=== PATIENT | female | born 1940 | race Caucasian/White ===

== ENCOUNTER 2018-08-04 13:00 | Emergency (ER) | payer MEDICARE, OTHER ==
[~2018-08-04] VITALS: Ht 167.6 cm; Wt 90.0 kg
[~2018-08-04 13:00] MED LIST: AMLO-15; CALC500T12; CYCL5TAB PO; FURO40TA4 PO; PANT40TA4 PO; VICES
[2018-08-04 13:16] VITALS: Ht 167.6 cm; Wt 90.0 kg
[2018-08-04] MEDS ORDERED: GABA-526 PO (13:53)
[2018-08-04] MEDS ORDERED: TRAM50TA2 PO (13:53)
[2018-08-04] MEDS ORDERED: AMLO-218 PO (13:53)
[2018-08-04] MEDS ORDERED: OMEP40CA6 PO (13:53)
[2018-08-04] MEDS ORDERED: KETOROLAC 30 MG INJ IM STA (13:55)
[2018-08-04] MEDS ORDERED: NAPR-985 PO (13:56)
[2018-08-04 18:20] VITALS: BP 121/82; PULSE 73; RESP 18
--- NOTE | 2018-08-06 00:31 | ERD ---
ER Documentation Chief Complaint Chief Complaint BIB RA FOR EVAL OF BILAT KNEE PAIN. NO RECENT INJURY. HX OF ARTHRITIS HPI 78-year-old woman with a long history of chronic knee pain and osteoarthritis presents with knee pain. She denies redness or swelling, no recent falls, no complaints of chest pain or shortness of breath. Patient usually uses a walker but sometimes a wheelchair to help ambulate. His knee pain is nonexertional nonradiating. ROS All systems reviewed and are negative except as per history of present illness. Medications Home Meds Active Scripts Naproxen* (Naprosyn*) 500 Mg Tablet, 500 MG PO BID PRN for PAIN AND/OR INFL AMMATION, #30 TAB Prov:SHAE CAPELLAN MD 08/04/18 Reported Medications Tramadol HCl (Tramadol HCl) 50 Mg Tablet, 50 MG PO Q4H WHILE AWAKE PRN for PAIN LEVEL 6-10, #120 TAB 08/04/18 Amlodipine Besylate* (Norvasc*) 10 Mg Tablet, 10 MG PO DAILY, TAB 08/04/18 Omeprazole* (Omeprazole*) 40 Mg Capsule.dr, 40 MG PO DAILY, #30 CAP 08/04/18 Gabapentin* (Gabapentin*) 600 Mg Tablet, 600 MG PO TID, #90 TAB 08/04/18 Discontinued Reported Medications Furosemide* (Furosemide*) 40 Mg Tablet, PO DAILY 04/02/11 Amlodipine-Benazepril (Amlodipine-Benazepril) 1 Cap Capsule, DAILY 04/02/11 Cyclobenzaprine Hcl (Flexeril) 5 Mg Tablet, PO DAILY 04/02/11 Calcium Carbonate* (Oysco-500*) 1 Tab Tablet, DAILY 04/02/11 Pantoprazole* (Pantoprazole*) 40 Mg Tablet.dr, PO DAILY 04/02/11 Acetaminophen/Hydrocodone (Vicodin Es) 1 Tab Tab 04/02/11 Allergies Allergies: Coded Allergies: No Known Drug Allergy (Verified Allergy, Unknown, 08/04/18) PMhx/Soc Gastritis, chronic pain syndrome, osteoarthritis History of Surgery: Yes (bilat KNEE REPLACEMENT, R SHOULDER, right foot 1st toe) Anesthesia Reaction: No Hx Neurological Disorder: No Hx Respiratory Disorders: No Hx Cardiac Disorders: Yes (HTN, hyperlipidemia) Hx Psychiatric Problems: No Hx Miscellaneous Medical Probl: No (ARTHRITIS, OSTEOPOROSIS) Hx Alcohol Use: No Hx Substance Use: No Hx Tobacco Use: No Smoking Status: Never smoker FmHx Family History: No diabetes Physical Exam Vitals Vital Signs Date Temp Pulse Resp B/P (MAP) Pulse Ox O2 O2 Flow FiO2 Time Delivery Rate 08/04/18 98.0 73 18 121/82 100 Room Air 18:20 (95) 08/04/18 71 20 119/84 100 Room Air 17:11 (96) 08/04/18 75 17 124/94 100 Room Air 15:31 (104) 08/04/18 75 20 131/71 100 Room Air 15:15 (91) 08/04/18 97.9 88 19 152/84 100 13:16 (106) Physical Exam Head: Atraumatic Eyes: Normal Conjunctiva ENT: Normal External Ears, Nose and Mouth. Neck: Full range of motion. No meningismus. Resp: Clear to auscultation bilaterally Cardio: Regular rate and rhythm, no murmurs Abd: Soft, non tender, non distended. Normal bowel sounds Skin: No petechiae or rashes Back: No midline or flank tenderness Ext: No cyanosis, or edema. Calves are bilaterally symmetrical, oste oarthritic changes to both knees, crepitus with flexion and extension, no soft tissue swelling to the knees Neur: Awake and alert x3, no focal deficits or facial asymmetry Psych: Normal Mood and Affect Results 24 hrs Current Medications Medications Dose Sig/Rose Marie Start Time Status Last (Trade) Ordered Route PRN Stop Time Admin Dose Reason Admin Ketorolac 30 mg ONCE STAT 08/04/18 DC 08/04/18 Tromethamine IM 13:55 14:26 (Toradol) 08/04/18 13:56 Procedures/MDM I administered Toradol 30 mg IM x1. Exam is normal, vital signs are normal, patient pain improved. Patient feels much better at this time, and vital signs are normal, symptoms have improved. I did give strict instructions to return to the ED if symptoms continue or worsen, patient will otherwise follow-up with primary care physician. Patient understood instructions and agreed to plan. Disclaimer: Inadvertent spelling and grammatical errors are likely due to EHR/dictation software use and do not reflect on the overall quality of patient care. Also, please note that the electronic time recorded on this note does not necessarily reflect the actual time of the patient encounter. Departure Diagnosis: Primary Impression: Knee pain Chronicity: acute Laterality: bilateral Qualified Codes: M25.561 - Pain in right knee; M25.562 - Pain in left knee Additional Impression: Osteoarthritis Osteoarthritis location: knee Osteoarthritis type: primary Laterality: bilateral Qualified Codes: M17.0 - Bilateral primary osteoarthritis of knee Condition: Good Patient Instructions: Chronic Pain, Osteoarthritis SHAE CAPELLAN MD Aug 06, 2018 00:31
== END 2018-08-04 18:44 | disposition home or self-care (01) ==
LOC: E/R 13:00
DX: M17.0 Bilateral primary osteoarthritis of knee (principal); I10 Essential (primary) hypertension; Z96.653 Presence of artificial knee joint, bilateral
CPT/HCPCS: 96372; 99284; J1885

== ENCOUNTER 2018-12-10 00:58 | Inpatient (IN) | payer MEDICARE, OTHER ==
[~2018-12-10] VITALS: Ht 157.5 cm; Wt 85.5 kg
[~2018-12-10 00:58] MED LIST changes: -AMLO-15; +AMLO-218 PO; -CALC500T12; -CYCL5TAB PO; -FURO40TA4 PO; +GABA-526 PO; +NAPR-985 PO; +OMEP40CA6 PO; -PANT40TA4 PO; +TRAM50TA2 PO; -VICES
[2018-12-10] MEDS ORDERED: IODIXANOL LOCM 100 ML BTL ONE (01:38)
[2018-12-10] MEDS ORDERED: SOD CHLORIDE 0.9% 100 ML ONE (01:38)
[2018-12-10] MEDS ORDERED: AZITHROMYCIN 500MG/NS (PMX) 250 ML IV STA (02:05)
[2018-12-10] MEDS ORDERED: CEFTRIAXONE 1 GM/50 ML (PMX) 50 ML IVPB STA (02:05)
--- NOTE | 2018-12-10 02:23 | ERD ---
ER Documentation Chief Complaint Chief Complaint BIBRA 90,from [facility],low O2 sat while on O2 via NC,s/p R hip replace HPI This is a 78-year-old female who presents for evaluation of hypoxia. Patient presents from [facility], she has been having a low O2 sat for about the last 5 hours, on room air she desats to 85%, her oxygenation improved on nasal cannula, she has a history of a right hip replacement, she has not had a fever. She denies any chest pain. There are no alleviating or aggravating factors. Symptoms have been going on since a day. ROS All systems reviewed and are negative except as per history of present illness. Medications Home Meds Active Scripts Naproxen* (Naprosyn*) 500 Mg Tablet, 500 MG PO BID PRN for PAIN AND/OR INFLAMMATION, #30 TAB Prov:SHAE CAPELLAN MD 08/04/18 Reported Medications Hydrocodone/Acetaminophen (Hydrocodone-Acetamin 10-325 mg) 1 Each Tablet, 1 TAB PO DAILY PRN for PAIN LEVEL 6-10 for 20 Days 12/10/18 Hydrochlorothiazide* (Hydrochlorothiazide*) 25 Mg Tab, 25 MG PO DAILY for 60 Days, #60 take 1 tablet by mouth once daily 12/10/18 Benazepril Hcl* (Benazepril Hcl*) 20 Mg Tablet, 20 MG PO BID for 30 Days, #60 12/10/18 Ibuprofen* (Ibuprofen*) 800 Mg Tablet, 800 MG PO Q6H PRN for PAIN LEVEL 6-10 12/10/18 Furosemide* (Furosemide*) 20 Mg Tablet, 20 MG PO DAILY 12/10/18 Tramadol HCl (Tramadol HCl) 50 Mg Tablet, 50 MG PO Q4H WHILE AWAKE PRN for PAIN LEVEL 6-10, #120 TAB 08/04/18 Amlodipine Besylate* (Norvasc*) 10 Mg Tablet, 10 MG PO DAILY, TAB 08/04/18 Omeprazole* (Omeprazole*) 40 Mg Capsule.dr, 40 MG PO DAILY, #30 CAP 08/04/18 Gabapentin* (Gabapentin*) 600 Mg Tablet, 600 MG PO TID, #90 TAB 08/04/18 Allergies Allergies: Coded Allergies: No Known Drug Allergy (Unverified Allergy, Unknown, 12/10/18) PMhx/Soc History of Surgery: Yes (bilat KNEE REPLACEMENT, R SHOULDER, right foot 1st toe,R hip replacement) Anesthesia Reaction: No Hx Neurological Disorder: No Hx Respiratory Disorders: No Hx Cardiac Disorders: Yes (HTN, hyperlipidemia) Hx Psychiatric Problems: No Hx Miscellaneous Medical Probl: No (ARTHRITIS, OSTEOPOROSIS) Hx Alcohol Use: No Hx Substance Use: No Hx Tobacco Use: No Smoking Status: Never smoker Physical Exam Vitals Vital Signs Date Temp Pulse Resp B/P (MAP) Pulse Ox O2 O2 Flow FiO2 Time Delivery Rate 12/10/18 Simple 6 01:36 Mask 12/10/18 66 25 99/57 (71) 97 Mask 01:30 12/10/18 95 10.0 01:20 12/10/18 97.8 67 28 87/57 (67) 86 01:06 Physical Exam Const: Elderly appearing female, in no acute distress Head: Atraumatic Eyes: Normal Conjunctiva ENT: Normal External Ears, Nose and Mouth. Neck: Full range of motion. No meningismus. Resp: Rales are heard bilaterally, there is no wheezes or rhonchi Cardio: Regular rate and rhythm, no murmurs Abd: Soft, non tender, abdomen is distended. Normal bowel sounds Skin: No petechiae or rashes Back: No midline or flank tenderness Ext: No cyanosis, 2+ pitting edema Neur: Awake and alert Psych: Normal Mood and Affect Result Diagram: 12/10/18 0127 12/10/18 0127 Results 24 hrs Laboratory Tests Test 12/10/18 01:07 12/10/18 01:24 12/10/18 01:27 Blood Gas Specimen Source Blood venous Arterial Blood Date Drawn 12/10/2018 1:30:42 AM Arterial Blood Gas VENOUS LINE Puncture Site Manuel Test N/A Venous Blood pH 7.454 Venous Blood pCO2 34.2 mmHG (Temp Corrected) Venous Blood pO2 49.7 mmHG (Temp Corrected) Venous Blood HCO3 23.5 mmol/L Venous Blood Oxygen 85.2 mmHG Saturation Venous Blood Base Excess 0.1 mmol/L Venous Blood Total 13.0 g/dl Hemoglobin Venous Blood Oxyhemoglobin 84.3 % Venous Blood Methemoglobin 0.1 % Carboxyhemoglobin 0.9 % Blood Gas Temperature 37.0 C Blood Gas Modality MASK - SIMPLE FiO2 61.0 % Blood Gas Notified Whom MM Blood Gas Notified Time 12/10/2018 1:42:17 AM POC Venous Lactate 1.7 mmol/L White Blood Count 13.1 10^3/ul Red Blood Count 4.02 10^6/ul Hemoglobin 11.3 g/dl Hematocrit 34.1 % Mean Corpuscular Volume 84.8 fl Mean Corpuscular Hemoglobin 28.1 pg Mean Corpuscular 33.1 g/dl Hemoglobin Concent Red Cell Distribution Width 17.1 % Platelet Count 104 10^3/UL Mean Platelet Volume 11.0 fl Immature Granulocytes % 7.200 % Neutrophils % % Lymphocytes % % Monocytes % % Eosinophils % % Basophils % % Nucleated Red Blood Cells % 0.0 /100WBC Immature Granulocytes # 0.940 10^3/ul Neutrophils # 10^3/ul Lymphocytes # 10^3/ul Monocytes # 10^3/ul Eosinophils # 10^3/ul Basophils # 10^3/ul Nucleated Red Blood Cells # 10^3/ul Prothrombin Time 27.8 Sec Prothrombin Time Ratio 2.2 INR International 2.59 Normalized Ratio Activated 44.1 Sec Partial Thromboplast Time Sodium Level 139 mmol/L Potassium Level 4.6 mmol/L Chloride Level 107 mmol/L Carbon Dioxide Level 27 mmol/L Anion Gap 5 Blood Urea Nitrogen 37 mg/dl Creatinine 0.71 mg/dl Est Glomerular Filtrat mL/min Rate mL/min Glucose Level 134 mg/dl Calcium Level 8.7 mg/dl Total Bilirubin 0.4 mg/dl Direct Bilirubin 0.00 mg/dl Indirect Bilirubin 0.4 mg/dl Aspartate Amino 19 IU/L Transf (AST/SGOT) Alanine 36 IU/L Aminotransferase (ALT/SGPT) Alkaline Phosphatase 79 IU/L Troponin I < 0.012 ng/ml Total Protein 6.0 g/dl Albumin 3.1 g/dl Globulin 2.90 g/dl Albumin/Globulin Ratio 1.06 Current Medications Medications Dose Sig/Rose Marie Start Time Status Last (Trade) Ordered Route PRN Stop Time Admin Dose Reason Admin IV Flush 10 ml STK-MED 12/10/18 DC 12/10/18 (NS 10 ml) ONCE .ROUTE 01:38 01:49 12/10/18 01:39 Sodium 100 ml @ ud STK-MED 12/10/18 DC 12/10/18 Chloride ONCE .ROUTE 01: 01:49 12/10/18 01:39 Iodixanol 100 ml STK-MED 12/10/18 DC 12/10/18 (Visipaque ONCE .ROUTE 01:38 01:49 Locm) 12/10/18 01:39 Azithromycin 250 ml @ ONCE STAT 12/10/18 250 mls/hr IV 02:05 12/10/18 03:04 Ceftriaxone 50 ml @ ONCE STAT 12/10/18 DC 12/10/18 Sodium 100 mls/hr IVPB 02:05 02:30 12/10/18 02:34 Procedures/MDM 78-year-old female presents for evaluation of shortness of breath and hypoxia. Patient had no chest pain, and her EKG showed no evidence of acute ischemia. Primary considerations were CHF, infection, and pulmonary embolism. Patient had a notable right-sided consolidation, seen on CT scan, patient was not hemodynamically unstable, and did not display evidence of massive PE. Her CTA is currently pending. She was given ceftriaxone and azithromycin empirically for possible pneumonia. She had no evidence of severe sepsis or septic shock, I did not administer IV fluids, as she had clinical signs of volume overload. She will be admitted to telemetry. EKG: Rate/Rhythm: Normal Sinus Rhythm QRS, ST, T-waves: LVH. No changes consistent w/ acute ischemia Impression: No evidence of ischemia or arrhythmia Accepting Care Team: Current data and ongoing care discussed. Primary: Teja Consulting: None Outstanding Data: none Departure Diagnosis: Primary Impression: Shortness of breath Additional Impression: Pneumonia Pneumonia type: due to unspecified organism Laterality: unspecified laterality Lung location: unspecified part of lung Qualified Codes: J18.9 - Pneumonia, unspecified organism Condition: SHAE Chaparro MD Dec 10, 2018 02:22
[2018-12-10] MEDS ORDERED: HYDR25TA6 PO (02:26)
[2018-12-10] MEDS ORDERED: IBUP-1544 PO (02:26)
[2018-12-10] MEDS ORDERED: HYDR-3609 PO (02:26)
[2018-12-10] MEDS ORDERED: BENA20TA4 PO (02:26)
[2018-12-10] MEDS ORDERED: FURO20TA3 PO (02:26)
[2018-12-10] MEDS ORDERED: ONDANSETRON 4 MG INJ IV PRN (03:00)
[2018-12-10] MEDS ORDERED: ACETAMINOPHEN 325 MG TAB PO PRN ×2 (03:00→03:30)
[2018-12-10] MEDS ORDERED: VANCOMYCIN IV PER PHARMACY XX SCH (03:30)
[2018-12-10] MEDS ORDERED: NACL 0.9% 3 ML SYG IV SCH (03:30)
[2018-12-10] MEDS ORDERED: DOCUSATE SODIUM 100 MG CAP PO PRN (03:30)
[2018-12-10] MEDS ORDERED: BISACODYL (EC) 5 MG TAB PO PRN (03:30)
[2018-12-10] MEDS ORDERED: VANCOMYCIN HCL 1.5 GM in SOD CHLORIDE 0.9% 250 ML IVPB ONE (04:00)
[2018-12-10] MEDS: ALBUMIN HUMAN 25% 100 ML IV SCH ×2 (04:29→06:38)
[2018-12-10 04:30] VITALS: Ht 157.5 cm; Wt 85.5 kg
[2018-12-10 04:33] VITALS: BP 101/61; PULSE 63; RESP 26
[2018-12-10] MEDS ORDERED: ALBUTEROL/IPRATROPIUM (NEB) 3 ML AMP HHN PRN (05:00)
[2018-12-10] MEDS ORDERED: NAPROXEN 500 MG TAB PO PRN (05:00)
--- NOTE | 2018-12-10 05:02 | HP ---
Date/Time of Note Date/Time of Note DATE: 12/10/18 TIME: 04:42 Assessment/Plan VTE Prophylaxis Pharmacological prophylaxis: heparin Lines/Catheters IV Catheter Type (from [facility]): Saline Lock Assessment/Plan Hospital Course This is a 78-year female being admitted to the telemetry floor for: #1 hypoxia: Likely multifactorial secondary to underlying healthcare associated pneumonia, possible CHF. CT of the chest did not show any signs of pulmonary embolism. There was evidence of possible bilateral pneumonia. She did report fevers yesterday however there was none recorded in the emergency department she does have leukocytosis. There is also some evidence of pulmonary congestion. I will give her albumin to see if this will help with diuresis as her blood pressures are borderline at the current time. She is currently on 6 L simple mask and saturating 89%, we will put her on a high flow/nonrebreather to help with her saturations. We will also give her a breathing treatments. #2 Healthcare associated pneumonia, bilateral: Patient presented from [facility]. Put the patient on broad-spectrum antibiotics of vancomycin and Zosyn. She did receive antibiotics in the emergency department. Will await culture results. #3 bilateral lower extremity edema: We will check a BNP, echocardiogram. She denies heart failure. #4 hypertension: I will hold amlodipine, benazepril, hydrochlorothiazide given patient's borderline blood pressures. #5 Coagulopathy: I do not see any AC meds on her med recon. Will need to monitor coags and check for underling liver disease thought LFTs are within normal values. #6 osteoporosis: Naproxen, tramadol as needed #7 DVT GI prophylaxis: Heparin subcu, home PPI Further treatment strategy will be implemented as per the clinical course Result Diagram: 12/10/18 0127 12/10/18 0127 Results 24hrs Laboratory Tests Test 12/10/18 01:07 12/10/18 01:24 12/10/18 01:27 12/10/18 03:19 Blood Gas Blood venous Specimen Source Arterial Blood 12/10/2018 1:30:4 Date Drawn 2 AM Arterial Blood VENOUS LINE Gas Puncture Site Manuel Test N/A Venous Blood pH 7.454 H Venous Blood pCO2 34.2 L (Temp Corrected) Venous Blood pO2 49.7 H (Temp Corrected) Venous Blood HCO3 23.5 Venous Blood 85.2 H Oxygen Saturation Venous Blood Base 0.1 Excess Venous Blood 13.0 Total Hemoglobin Venous Blood 84.3 Oxyhemoglobin Venous Blood 0.1 Methemoglobin Carboxyhemoglobin 0.9 Blood Gas 37.0 Temperature Blood Gas MASK - SIMPLE Modality FiO2 61.0 Blood Gas MM Notified Whom Blood Gas 12/10/2018 1:42:1 Notified Time 7 AM POC Venous 1.7 Lactate White Blood Count 13.1 H Red Blood Count 4.02 L Hemoglobin 11.3 L Hematocrit 34.1 L Mean Corpuscular 84.8 Volume Mean Corpuscular 28.1 L Hemoglobin Mean Corpuscular 33.1 Hemoglobin Concen t Red Cell 17.1 H Distribution Width Platelet Count 104 L Mean Platelet 11.0 H Volume Immature 7.200 H Granulocytes % Neutrophils % Segmented 41 Neutrophils % (Manual) Band Neutrophils 43 H % (Manual) Lymphocytes % Lymphocytes % 12 L (Manual) Monocytes % Monocytes % 3 (Manual) Eosinophils % Basophils % Myelocytes % 1 H (Manual) Nucleated Red 0.0 Blood Cells % Immature 0.940 H Granulocytes # Neutrophils # Neutrophils # 6.1 (Manual) Band Neutrophils 5.6 H # Lymphocytes 1.5 (Manual) Lymphocytes # Monocytes # Monocytes # 0.3 (Manual) Eosinophils # Basophils # Myelocytes # 0.1 H Nucleated Red Blood Cells # Platelet Estimate DECREASED Giant Platelets 2 H Polychromasia 3+ Poikilocytosis 1+ Anisocytosis 2+ Microcytosis 2+ Prothrombin Time 27.8 H Prothrombin Time 2.2 Ratio INR International 2.59 Normalized Ratio Activated 44.1 H Partial Thrombopl ast Time Sodium Level 139 Potassium Level 4.6 Chloride Level 107 Carbon Dioxide 27 Level Anion Gap 5 Blood Urea 37 H Nitrogen Creatinine 0.71 Est Glomerular Filtrat Rate mL/min Glucose Level 134 Calcium Level 8.7 Total Bilirubin 0.4 Direct Bilirubin 0.00 Indirect 0.4 Bilirubin Aspartate Amino 19 Transf (AST/SGOT) Alanine 36 Aminotransferase (ALT/SGPT) Alkaline 79 Phosphatase Troponin I < 0.012 Total Protein 6.0 L Albumin 3.1 L Globulin 2.90 Albumin/Globulin 1.06 Ratio Lactic Acid Level 1.2 HPI/ROS Admit Date/Time Admit Date/Time Dec 10, 2018 at 02:52 Hx of Present Illness Chief complaint: [facility] in [facility] hypoxia This is a 78-year-old female who presents for evaluation of hypoxia. Patient presents from [facility], she has been having a low O2 sat for about the last 5 hours, on room air she desats to 85%, her oxygenation improved on nasal cannula, she has a history of a right hip replacement, she has not had a fever. She denies any chest pain. There are no alleviating or aggravating factors. Symptoms have been going on since a day. Patient had a CTA of the chest performed in the emergency department that was negative for PE. There was evidence though of bilateral pneumonia. She is currently satting at 89% on 6 L nasal cannula. Allergies: NKDA Medications: Amlodipine 10 mg p.o. daily Benazepril 20 mg p.o. twice daily Lasix 20 mg p.o. daily Gabapentin 600 mg p.o. 3 times daily Hydrochlorothiazide 25 mg p.o. daily [place] 10-325 mg p.o. as needed Ibuprofen 800 mg p.o. every 6 hours Naproxen 500 mg p.o. twice daily PRN Tramadol 50 mg p.o. every 4 hours PRN Omeprazole 40 mg p.o. daily ROS Const: As per HPI Eyes : No pain discharge or redness or change in visual acuity ENT: No pain, sore throat, congestion, congestion, dysphagia or discharge Respiratory: As per HPI Cardiovascular: No chest pain, palpitation, PND, or edema GI : no change in appetite, abdominal pain, nausea, vomiting, diarrhea, constipation, or change in the color his stool Genitourinary: No dysuria, hematuria, flank pain , discharge or CVA tenderness Musculoskeletal: No joint pain, back pain, neck pain, restricted range of motion in neck or joints Skin: No rash, bruising or hives Neuro: No headache, dizziness, syncope, seizure, focal weakness Endocrine: No polyuria, polydipsia, temperature intolerance Psych: No hallucination, depression, anxiety or suicidal ideation PMH/Family/Social Past Medical History Hypertension, hyperlipidemia, osteoporosis Medications Current Medications Ondansetron HCl (Zofran Inj) 4 mg ER BRIDGE PRN IV NAUSEA/VOMITING; Start 12/10/18 at 03:00; Stop 12/11/18 at 02:59 Acetaminophen (Tylenol Tab) 650 mg ER BRIDGE PRN PO .MILD PAIN 1-3 OR TEMP; Start 12/10/18 at 03:00; Stop 12/11/18 at 02:59 IV Flush (NS 3 ml) 3 ml PER PROTOCOL IV ; Start 12/10/18 at 03:30 Acetaminophen (Tylenol Tab) 650 mg Q6H PRN PO .PAIN 1-3 OR TEMP; Start 12/10/18 at 03:30 Docusate Sodium (Colace) 100 mg Q12H PRN PO .CONSTIPATION; Start 12/10/18 at 03:30 Bisacodyl (Dulcolax) 5 mg DAILY PRN PO .CONSTIPATION; Start 12/10/18 at 03:30 Heparin Sodium (Porcine) (Heparin (5000 Units/1ml)) 5,000 unit Q8 SC ; Start 12/10/18 at 06:00 Albumin Human 100 ml @ 100 mls/hr Q1H IV Last administered on 12/10/18at 04:29; Admin Dose 100 MLS/HR; Start 12/10/18 at 03:30; Stop 12/10/18 at 05:29 Vancomycin HCl (Vanco Iv Per Pharmacy) VANCOMYCIN PER PHARMACY PER PROTOCOL XX ; Start 12/10/18 at 03:30 Piperacillin Sod/ Tazobactam Sod 100 ml @ 200 mls/hr Q6 IVPB ; Start 12/10/18 at 06:00 Vancomycin HCl 1.5 gm/Sodium Chloride 250 ml @ 83.333 mls/ hr ONCE ONCE IVPB ; Start 12/10/18 at 04:00; Stop 12/10/18 at 06:59 Vancomycin HCl 250 ml @ 125 mls/hr Q24H IVPB ; Start 12/11/18 at 04:00 Miscellaneous Information (*Rx Drug Level Order Reminder*) VANCOMYCIN TROUGH LEVEL 0300 ONCE XX ; Start 12/13/18 at 03:00; Stop 12/13/18 at 03:01 Coded Allergies: No Known Drug Allergy (Unverified Allergy, Unknown, 12/10/18) Past Surgical History Bilateral knee surgeries, right shoulder surgery, right hip surgery, right toe surgery Family History Significant Family History: no pertinent family hx Social History Alcohol Use: none Smoking Status: Never smoker Drug Use: none Exam/Review of Systems Vital Signs Vitals Vital Signs Date Temp Pulse Resp B/P (MAP) Pulse Ox O2 O2 Flow FiO2 Time Delivery Rate 12/10/18 97.6 63 26 101/61 92 Mask 04:33 (74) 12/10/18 5.0 03:44 Exam Exam General: Patient is a pleasant female currently sitting upright in bed in no acute distress, she is eating crackers HEENT: Atraumatic, normocephalic. The pupils are equal, round and reactive. Extraocular motor are intact Neck: Supple with full range of motion. No rigidity or meningismus Chest: Nontender Lungs: Diminished breath sounds bilaterally coarse, mild rales at the bases Heart: Normal S1-S2, Regular rhythm and rate. No murmur, S3, or S4 Abdomen: Soft , nontender, nondistended , bowel sounds are present. No guarding no rebound tenderness , No masses or organomegaly. No costovertebral temporal angle mass Extremities: Bilateral lower extremity pitting edema Neurologic: Normal mental status, speech normal, cranial nerves II through XII are intact, motor and sensory are intact, NELLY PARRISH Dec 10, 2018 04:53
[2018-12-10] MEDS: PIPER-TAZO 3.375 GM IV (PMX) 100 ML IVPB SCH ×4 (05:57→23:55)
[2018-12-10] MEDS: HEPARIN 5,000 UNIT/1 ML VIAL SC SCH ×3 (06:00→22:08)
[2018-12-10] MEDS: PANTOPRAZOLE (EC) 40 MG TAB PO SCH (06:00)
[2018-12-10 07:12] VITALS: BP 97/55; PULSE 79; RESP 20
[2018-12-10] MEDS: GABAPENTIN 300 MG CAP PO SCH ×3 (08:17→21:37)
[2018-12-10] MEDS ORDERED: NON-FORMULARY/PATIENT OWN MED (Omeprazole* 40 MG) PO SCH (09:00)
--- NOTE | 2018-12-10 10:46 | PN ---
Date/Time of Note Date/Time of Note DATE: 12/10/18 TIME: 10:43 Assessment/Plan VTE Prophylaxis Risk score (from Ns)>0 risk: 3 [place] [facility] [place] Pharmacological prophylaxis: NA/contraindicated Pharm contraindication: thrombocytopenia Lines/Catheters IV Catheter Type (from [facility]): Saline Lock Assessment/Plan Hospital Course SUBJECTIVE: Remains on high flow oxygen. OBJECTIVE: Physical Exam General: Obese, 78 year-old female lying in bed in no apparent distress. HEENT: Normocephalic, atraumatic. Eyes: Anicteric sclerae, conjunctivae clear. ENT: Nasal septum midline, oral mucosa moist. Neck: Short and obese. Respiratory: Bilaterally diminished breath sounds. Bibasilar Rales. No use of accessory muscles of respiration. On high flow oxygen. Cardiovascular: S1, S2 heard. Regular rate and rhythm. Abdomen: Soft, nontender, and nondistended. Bowel sounds positive in all 4 quadrants. Genitourinary: Deferred. Extremities: No cyanosis, no clubbing. Bilateral lower extremity 1+ edema. Peripheral pulses palpable. Neurologic: Cranial nerves II through XII grossly intact. The patient is awake, alert, and oriented. Skin: Normal skin turgor. No skin rashes. Labs & Vitals per chart ASSESSMENT & PLAN 78-year-old female with comorbidities including hypertension, osteoporosis, and obesity who was transferred from a senior care facility because of hypoxia with evidence of sepsis with leukocytosis, tachypnea, and bandemia with CT suggestive of underlying pneumonia, who was admitted to inpatient setting for further treatment and evaluation. 1. Severe sepsis with leukocytosis, tachypnea, and bandemia. Sepsis criteria: WBC 13.1, tachypnea (RR >20), bandemia (>10%) Infectious source: Respiratory source (suspect underlying HCAP). End organ damage (severe sepsis) indicated by: Hypoxia, INR >1.5 without warfarin Septic shock criteria: No Continue empiric antimicrobials. 2. Suspect healthcare associated pneumonia. Continue antimicrobials. 3. Acute respiratory failure. Hypoxic. Etiology could be multifactorial including underlying pneumonia and possibly a component of congestive heart failure. Continue supplemental oxygen. Continue inhaled bronchodilators. Pulmonology evaluation. 4. Coagulopathy. INR of 2.59 with a platelet count of 90. Etiology unclear. Will obtain a liver ultrasound to evaluate for any underlying liver cirrhosis. 5. Bilateral lower extremity edema. Etiology unclear. Obtain bilateral lower extremity venous Doppler study. 2D echocardiogram to evaluate the left ventricular ejection fraction 6. Hypertension. Antihypertensives on hold because of borderline low blood pressure. 7. Obesity. BMI7 34 kg/m. Obtain fasting lipid panel and hemoglobin A1c. Advised lifestyle modification. 8. Fluids, electrolytes, and nutrition. Low-cholesterol diet. 9. DVT prophylaxis. Chemical DVT prophylaxis contraindicated because of underlying coagulopathy. 10. Plan. Continue antimicrobial therapy. Await cultures. Await clinical improvement. Obtain pulmonology evaluation. The patient was seen in collaboration with Dr. Amezquita. Result Diagram: 12/10/18 0557 12/10/18 0557 Results 24hrs Laboratory Tests Test 12/10/18 01:07 12/10/18 01:24 12/10/18 01:27 12/10/18 03:19 Blood Gas Blood venous Specimen Source Arterial Blood 12/10/2018 1:30:4 Date Drawn 2 AM Arterial Blood VENOUS LINE Gas Puncture Site Manuel Test N/A Venous Blood pH 7.454 H Venous Blood pCO2 34.2 L (Temp Corrected) Venous Blood pO2 49.7 H (Temp Corrected) Venous Blood HCO3 23.5 Venous Blood 85.2 H Oxygen Saturation Venous Blood Base 0.1 Excess Venous Blood 13.0 Total Hemoglobin Venous Blood 84.3 Oxyhemoglobin Venous Blood 0.1 Methemoglobin Carboxyhemoglobin 0.9 Blood Gas 37.0 Temperature Blood Gas MASK - SIMPLE Modality FiO2 61.0 Blood Gas MM Notified Whom Blood Gas 12/10/2018 1:42:1 Notified Time 7 AM POC Venous 1.7 Lactate White Blood Count 13.1 H Red Blood Count 4.02 L Hemoglobin 11.3 L Hematocrit 34.1 L Mean Corpuscular 84.8 Volume Mean Corpuscular 28.1 L Hemoglobin Mean Corpuscular 33.1 Hemoglobin Concen t Red Cell 17.1 H Distribution Width Platelet Count 104 L Mean Platelet 11.0 H Volume Immature 7.200 H Granulocytes % Neutrophils % Segmented 66 Neutrophils % (Manual) Band Neutrophils 18 H % (Manual) Lymphocytes % Lymphocytes % 11 L (Manual) Monocytes % Monocytes % 3 (Manual) Eosinophils % Basophils % Metamyelocytes % 2 H (manual) Myelocytes % 1 H (Manual) Nucleated Red 0.0 Blood Cells % Immature 0.940 H Granulocytes # Neutrophils # Neutrophils # 8.9 H (Manual) Band Neutrophils 2.3 H # Lymphocytes 1.4 (Manual) Lymphocytes # Monocytes # Monocytes # 0.3 (Manual) Eosinophils # Basophils # Metamyelocytes # 0.2 H Myelocytes # 0.1 H Nucleated Red Blood Cells # Platelet Estimate DECREASED Giant Platelets 2 H Polychromasia 2+ Poikilocytosis 2+ Anisocytosis 1+ Microcytosis 1+ Ovalocytes 1+ Prothrombin Time 27.8 H Prothrombin Time 2.2 Ratio INR International 2.59 Normalized Ratio Activated 44.1 H Partial Thrombopl ast Time Sodium Level 139 Potassium Level 4.6 Chloride Level 107 Carbon Dioxide 27 Level Anion Gap 5 Blood Urea 37 H Nitrogen Creatinine 0.71 Est Glomerular Filtrat Rate mL/min Glucose Level 134 Calcium Level 8.7 Total Bilirubin 0.4 Direct Bilirubin 0.00 Indirect 0.4 Bilirubin Aspartate Amino 19 Transf (AST/SGOT) Alanine 36 Aminotransferase (ALT/SGPT) Alkaline 79 Phosphatase Troponin I < 0.012 Total Protein 6.0 L Albumin 3.1 L Globulin 2.90 Albumin/Globulin 1.06 Ratio Lactic Acid Level 1.2 Test 12/10/18 05:57 White Blood Count 11.7 H Red Blood Count 3.56 L Hemoglobin 9.8 L Hematocrit 30.0 L Mean Corpuscular 84.3 Volume Mean Corpuscular 27.5 L Hemoglobin Mean Corpuscular 32.7 Hemoglobin Concen t Red Cell 17.2 H Distribution Width Platelet Count 90 L Mean Platelet 11.0 H Volume Immature 6.100 H Granulocytes % Neutrophils % Lymphocytes % Monocytes % Eosinophils % Basophils % Nucleated Red 0.0 Blood Cells % Immature 0.710 H Granulocytes # Neutrophils # Lymphocytes # Monocytes # Eosinophils # Basophils # Nucleated Red Blood Cells # Sodium Level 140 Potassium Level 4.2 Chloride Level 107 Carbon Dioxide 24 Level Anion Gap 9 Blood Urea 31 H Nitrogen Creatinine 0.57 Est Glomerular Filtrat Rate mL/min Glucose Level 148 Lactic Acid Level 2.0 Calcium Level 8.8 Magnesium Level 2.2 Total Bilirubin 0.4 Direct Bilirubin 0.00 Indirect 0.4 Bilirubin Aspartate Amino 18 Transf (AST/SGOT) Alanine 30 Aminotransferase (ALT/SGPT) Alkaline 62 Phosphatase B-Type 198 Natriuretic Peptide Total Protein 5.7 L Albumin 3.2 L Globulin 2.50 Albumin/Globulin 1.28 Ratio Procalcitonin 6.85 H Thyroid 0.805 Stimulating Hormone (TSH) Exam/Review of Systems Exam Vitals Vital Signs Date Temp Pulse Resp B/P (MAP) Pulse Ox O2 O2 Flow FiO2 Time Delivery Rate 12/10/18 Simple 6.0 08:00 Mask 12/10/18 97.8 79 20 97/55 (69) 92 07:12 Intake and Output 12/09/18 12/09/18 12/10/18 1515:00 23:00 07:00 IntakeIntake Total 60 ml BalanceBalance 60 ml Results Results 24hrs Laboratory Tests Test 12/10/18 01:07 12/10/18 01:24 12/10/18 01:27 12/10/18 03:19 Blood Gas Blood venous Specimen Source Arterial Blood 12/10/2018 1:30:4 Date Drawn 2 AM Arterial Blood VENOUS LINE Gas Puncture Site Manuel Test N/A Venous Blood pH 7.454 H Venous Blood pCO2 34.2 L (Temp Corrected) Venous Blood pO2 49.7 H (Temp Corrected) Venous Blood HCO3 23.5 Venous Blood 85.2 H Oxygen Saturation Venous Blood Base 0.1 Excess Venous Blood 13.0 Total Hemoglobin Venous Blood 84.3 Oxyhemoglobin Venous Blood 0.1 Methemoglobin Carboxyhemoglobin 0.9 Blood Gas 37.0 Temperature Blood Gas MASK - SIMPLE Modality FiO2 61.0 Blood Gas MM Notified Whom Blood Gas 12/10/2018 1:42:1 Notified Time 7 AM POC Venous 1.7 Lactate White Blood Count 13.1 H Red Blood Count 4.02 L Hemoglobin 11.3 L Hematocrit 34.1 L Mean Corpuscular 84.8 Volume Mean Corpuscular 28.1 L Hemoglobin Mean Corpuscular 33.1 Hemoglobin Concen t Red Cell 17.1 H Distribution Width Platelet Count 104 L Mean Platelet 11.0 H Volume Immature 7.200 H Granulocytes % Neutrophils % Segmented 66 Neutrophils % (Manual) Band Neutrophils 18 H % (Manual) Lymphocytes % Lymphocytes % 11 L (Manual) Monocytes % Monocytes % 3 (Manual) Eosinophils % Basophils % Metamyelocytes % 2 H (manual) Myelocytes % 1 H (Manual) Nucleated Red 0.0 Blood Cells % Immature 0.940 H Granulocytes # Neutrophils # Neutrophils # 8.9 H (Manual) Band Neutrophils 2.3 H # Lymphocytes 1.4 (Manual) Lymphocytes # Monocytes # Monocytes # 0.3 (Manual) Eosinophils # Basophils # Metamyelocytes # 0.2 H Myelocytes # 0.1 H Nucleated Red Blood Cells # Platelet Estimate DECREASED Giant Platelets 2 H Polychromasia 2+ Poikilocytosis 2+ Anisocytosis 1+ Microcytosis 1+ Ovalocytes 1+ Prothrombin Time 27.8 H Prothrombin Time 2.2 Ratio INR International 2.59 Normalized Ratio Activated 44.1 H Partial Thrombopl ast Time Sodium Level 139 Potassium Level 4.6 Chloride Level 107 Carbon Dioxide 27 Level Anion Gap 5 Blood Urea 37 H Nitrogen Creatinine 0.71 Est Glomerular Filtrat Rate mL/min Glucose Level 134 Calcium Level 8.7 Total Bilirubin 0.4 Direct Bilirubin 0.00 Indirect 0.4 Bilirubin Aspartate Amino 19 Transf (AST/SGOT) Alanine 36 Aminotransferase (ALT/SGPT) Alkaline 79 Phosphatase Troponin I < 0.012 Total Protein 6.0 L Albumin 3.1 L Globulin 2.90 Albumin/Globulin 1.06 Ratio Lactic Acid Level 1.2 Test 12/10/18 05:57 White Blood Count 11.7 H Red Blood Count 3.56 L Hemoglobin 9.8 L Hematocrit 30.0 L Mean Corpuscular 84.3 Volume Mean Corpuscular 27.5 L Hemoglobin Mean Corpuscular 32.7 Hemoglobin Concen t Red Cell 17.2 H Distribution Width Platelet Count 90 L Mean Platelet 11.0 H Volume Immature 6.100 H Granulocytes % Neutrophils % Lymphocytes % Monocytes % Eosinophils % Basophils % Nucleated Red 0.0 Blood Cells % Immature 0.710 H Granulocytes # Neutrophils # Lymphocytes # Monocytes # Eosinophils # Basophils # Nucleated Red Blood Cells # Sodium Level 140 Potassium Level 4.2 Chloride Level 107 Carbon Dioxide 24 Level Anion Gap 9 Blood Urea 31 H Nitrogen Creatinine 0.57 Est Glomerular Filtrat Rate mL/min Glucose Level 148 Lactic Acid Level 2.0 Calcium Level 8.8 Magnesium Level 2.2 Total Bilirubin 0.4 Direct Bilirubin 0.00 Indirect 0.4 Bilirubin Aspartate Amino 18 Transf (AST/SGOT) Alanine 30 Aminotransferase (ALT/SGPT) Alkaline 62 Phosphatase B-Type 198 Natriuretic Peptide Total Protein 5.7 L Albumin 3.2 L Globulin 2.50 Albumin/Globulin 1.28 Ratio Procalcitonin 6.85 H Thyroid 0.805 Stimulating Hormone (TSH) Medications Medication Current Medications Ondansetron HCl (Zofran Inj) 4 mg ER BRIDGE PRN IV NAUSEA/VOMITING; Start 12/10/18 at 03:00; Stop 12/11/18 at 02:59 Acetaminophen (Tylenol Tab) 650 mg ER BRIDGE PRN PO .MILD PAIN 1-3 OR TEMP; Start 12/10/18 at 03:00; Stop 12/11/18 at 02:59 IV Flush (NS 3 ml) 3 ml PER PROTOCOL IV ; Start 12/10/18 at 03:30 Acetaminophen (Tylenol Tab) 650 mg Q6H PRN PO .PAIN 1-3 OR TEMP; Start 12/10/18 at 03:30 Docusate Sodium (Colace) 100 mg Q12H PRN PO .CONSTIPATION; Start 12/10/18 at 03:30 Bisacodyl (Dulcolax) 5 mg DAILY PRN PO .CONSTIPATION; Start 12/10/18 at 03:30 Heparin Sodium (Porcine) (Heparin (5000 Units/1ml)) 5,000 unit Q8 SC ; Start 12/10/18 at 06:00 Vancomycin HCl (Vanco Iv Per Pharmacy) VANCOMYCIN PER PHARMACY PER PROTOCOL XX ; Start 12/10/18 at 03:30 Piperacillin Sod/ Tazobactam Sod 100 ml @ 200 mls/hr Q6 IVPB Last administered on 12/10/18at 05:57; Admin Dose 200 MLS/HR; Start 12/10/18 at 06:00 Vancomycin HCl 250 ml @ 125 mls/hr Q24H IVPB ; Start 12/11/18 at 04:00 Miscellaneous Information (*Rx Drug Level Order Reminder*) VANCOMYCIN TROUGH LEVEL 0300 ONCE XX ; Start 12/13/18 at 03:00; Stop 12/13/18 at 03:01 Gabapentin (Neurontin) 600 mg TID PO Last administered on 12/10/18at 08:17; Admin Dose 600 MG; Start 12/10/18 at 09:00 Albuterol/ Ipratropium (Duoneb) 3 ml Q4H RESP THERAPY PRN HHN SHORTNESS OF BREATH; Start 12/10/18 at 05:00 Naproxen (Naprosyn) 500 mg BID PRN PO PAIN AND/OR INFLAMMATION; Start 12/10/18 at 05:00 Tramadol HCl (Ultram) 50 mg Q4H WHILE AWAKE PRN PO PAIN LEVEL 6-10; Start 12/10/18 at 05:00 Pantoprazole (Protonix Tab) 40 mg DAILY@06 PO ; Start 12/10/18 at 06:00 IVET SHAH NP Dec 10, 2018 10:46
[2018-12-10 11:10] VITALS: BP 94/52; PULSE 64; RESP 19
--- NOTE | 2018-12-10 12:42 | RADRPT ---
Echocardiogram Report Patient Name: CHAYA SHAHIDPatient ID: [id number] : 1940 (78y 7m)Study Date: 12/10/2018 7:13:56 AM Gender: FAccession #: [id number] Tech: Gutierrez Caban RDCS Location: [facility] Ref.Physician: NELLY PARRISH Height(Cm): BSA: Weight(Kg): Quality: AdequateOrder Physician: NELLY PARRISH Account #: Procedures: Echocardiographic Report: Transthoracic echocardiogram with complete 2D, M-Mode, and doppler examination. Indications: Shortness of breath. Measurements: 2D/M Mode Doppler Measurement Value Normal Range Measurement Value Normal Range LVIDd 2D 4.2 [ 3.8 - 5.2 ] cm AV Peak Neno 1.4 [ 100.0 - 170.0 ] cm/se c LVIDs 2D 3.1 [ 2.2 - 3.5 ] cm AV Peak PG 8.0 [ 2.0 - 9.0 ] mmHg LVPWd 2D 1.0 [ 0.6 - 0.9 ] cm LVOT Peak Neno 1.0 [ 70.0 - 110.0 ] cm/sec IVSd 2D 0.7 [ 0.6 - 0.9 ] cm LVOT Peak PG 4.0 [ 2.0 - 6.0 ] mmHg AoR Diam 2D 2.5 [ 2.3 - 3.1 ] cm MV E Peak Neno 0.8 [ 60.0 - 130.0 ] cm/sec EDV 2D 78.6 [ 46.0 - 106.0 ] ml MV A Peak Neno 0.6 [ 100.0 - 120.0 ] cm/se c ESV 2D 38.5 [ 14.0 - 42.0 ] ml MV E/A 1.2 [ 0.8 - 1.5 ] ratio EF 2D 51.0 [ 54.0 - 74.0 ] percent MV PHT 65.0 [ 20.0 - 100.0 ] msec LA Dimen 2D 3.1 [ 2.7 - 3.8 ] cm MV Decel Time 222 [ 104 - 258 ] msec MV Decel [place] 3 Lat E` Neno 0.1 [ 10.0 - 15.0 ] cm/sec Lateral E/E` 9.3 [ 1.0 - 2.0 ] ratio Med E` Neno 0.1 cm/sec MV E/A 1.2 [ 0.8 - 1.5 ] ratio MVA PHT 3.4 [ 2.0 - 4.0 ] cm2 Findings: Left Ventricle: Normal left ventricular systolic function. Normal left ventricular cavity size. Normal left ventricular wall thickness. Ejection fraction is visually estimated at 55-60 %. Tissue Doppler/Mitral Doppler indices are consistent with impaired relaxation (Stage I diastolic dysfunction). Right Ventricle: Normal right ventricular size. Normal right ventricular systolic function. Left Atrium: There is mild enlargement of left atrium. Right Atrium: The right atrium is normal in size. Atrial Septum: Normal atrial septum. Ventricular septum: Normal/intact ventricular septum. Mitral Valve: Normal appearance of the mitral valve. Normal appearance and function of the mitral valve with trace physiologic regurgitation. Aortic Valve: Normal appearance of the aortic valve. No aortic regurgitation. Tricuspid Valve: Normal appearance of the tricuspid valve. Unable to obtain RVSP due to minimal presence of tricuspid regurgitation. Physiologic tricuspid regurgitation. Pulmonic Valve: Normal pulmonic valve appearance. No evidence of pulmonic regurgitation. Pericardium: Normal pericardium with no significant pericardial effusion. Aorta: Normal aortic root. IVC: Normal size and normal respiratory collapse consistent with normal right atrial pressure. Conclusions: Normal left ventricular systolic function. Normal left ventricular cavity size. Normal left ventricular wall thickness. Ejection fraction is visually estimated at 55-60 %. Tissue Doppler/Mitral Doppler indices are consistent with impaired relaxation (Stage I diastolic dysfunction). No significant valvular stenosis or regurgitation seen. Unable to obtain RVSP due to minimal presence of tricuspid regurgitation. Normal size and normal respiratory collapse consistent with normal right atrial pressure. Electronically Signed By: Jeff Dickey 2018-12-10 12:41:28 PDT
[2018-12-10 15:05] VITALS: BP 117/67; PULSE 63; RESP 20
[2018-12-10 20:00] VITALS: BP 106/55; PULSE 52; RESP 20
[2018-12-11] VITALS (7 sets, daily range): BP systolic 92–110; BP diastolic 50–71; PULSE 62–81; RESP 20
[2018-12-11] MEDS: VANCOMYCIN 1 GM 250 ML IVPB SCH (04:26)
[2018-12-11] MEDS: PIPER-TAZO 3.375 GM IV (PMX) 100 ML IVPB SCH ×4 (06:49→23:42)
[2018-12-11] MEDS: PANTOPRAZOLE (EC) 40 MG TAB PO SCH (06:49)
[2018-12-11] MEDS: HEPARIN 5,000 UNIT/1 ML VIAL SC SCH (06:56)
[2018-12-11] MEDS: GABAPENTIN 300 MG CAP PO SCH ×3 (07:53→20:32)
--- NOTE | 2018-12-11 09:54 | PN ---
Date/Time of Note Date/Time of Note DATE: 12/11/18 TIME: 09:48 Assessment/Plan VTE Prophylaxis Risk score (from Ns)>0 risk: 4 SCD applied (from Ns): Yes Pharmacological prophylaxis: LMWH Lines/Catheters IV C[facility]ter Type [facility]from [facility]): Saline Lock Assessment/Plan Hospital Course SUBJECTIVE: Remains on high flow oxygen. OBJECTIVE: Physical Exam General: Obese, 78 year-old female lying in bed in no apparent distress. HEENT: Normocephalic, atraumatic. Eyes: Anicteric sclerae, conjunctivae clear. ENT: Nasal septum midline, oral mucosa moist. Neck: Short and obese. Respiratory: Bilaterally diminished breath sounds. Bibasilar Rales. No use of accessory muscles of respiration. On high flow oxygen. Cardiovascular: S1, S2 heard. Regular rate and rhythm. Abdomen: Soft, nontender, and nondistended. Bowel sounds positive in all 4 quadrants. Genitourinary: Deferred. Extremities: No cyanosis, no clubbing. Bilateral lower extremity 1+ edema. Peripheral pulses palpable. Neurologic: Cranial nerves II through XII grossly intact. The patient is awake, alert, and oriented. Skin: Normal skin turgor. No skin rashes. Labs & Vitals per chart ASSESSMENT & PLAN 78-year-old female with comorbidities including hypertension, osteoporosis, and obesity who was transferred from a nursing home facility because of hypoxia with evidence of sepsis with leukocytosis, tachypnea, and bandemia with CT suggestive of underlying pneumonia, who was admitted to inpatient setting for further treatment and evaluation. 1. Severe sepsis with leukocytosis, tachypnea, and bandemia. Sepsis criteria: WBC 13.1, tachypnea (RR >20), bandemia (>10%) Infectious source: Respiratory source (suspect underlying HCAP). End organ damage (severe sepsis) indicated by: Hypoxia, INR >1.5 without warfarin Septic shock criteria: No Continue empiric antimicrobials. 2. Suspect healthcare associated pneumonia. Continue antimicrobials. 3. Acute respiratory failure. Hypoxic. Etiology could be multifactorial including underlying pneumonia and possibly a component of congestive heart failure. Continue supplemental oxygen. Continue inhaled bronchodilators. Pulmonology evaluation. 4. Acute partially occlusive thrombus of the right femoral vein. Started the patient on therapeutic Lovenox. The patient claims that she has an IVC filter in place. Will obtain a KUB to confirm this. 5. Thrombocytopenia. Etiology unclear. Monitor. Liver ultrasound negative for any cirrhosis. 6. Bilateral lower extremity edema. Etiology unclear. Venous Doppler showing DVT of the right lower extremity. 2D echocardiogram showing preserved left ventricular ejection fraction 7. Hypertension. Antihypertensives on hold because of borderline low blood pressure. 8. Obesity. BMI7 34 kg/m. Advised lifestyle modification. 9. Prediabetes. Hemoglobin A1c 6.2. Monitor glycemic trends. 10. Fluids, electrolytes, and nutrition. Low-cholesterol diet. 11. DVT prophylaxis. On therapeutic Lovenox. 12. Plan. Continue antimicrobial therapy. Wean off oxygen as tolerated. Await clinical improvement. The patient was seen in collaboration with Dr. Amezquita. Result Diagram: 12/11/18 0512 12/11/18 0512 Results 24hrs Laboratory Tests Test 12/11/18 05:12 White Blood Count 8.7 # Red Blood Count 3.51 L Hemoglobin 9.7 L Hematocrit 30.2 L Mean Corpuscular Volume 86.0 Mean Corpuscular Hemoglobin 27.6 L Mean Corpuscular Hemoglobin Concent 32.1 Red Cell Distribution Width 17.5 H Platelet Count 90 L Mean Platelet Volume 11.3 H Immature Granulocytes % 3.300 H Neutrophils % 76.0 Lymphocytes % 16.0 Monocytes % 3.7 Eosinophils % 0.8 Basophils % 0.2 Nucleated Red Blood Cells % 0.0 Immature Granulocytes # 0.290 H Neutrophils # 6.6 Lymphocytes # 1.4 Monocytes # 0.3 Eosinophils # 0.1 Basophils # 0.0 Nucleated Red Blood Cells # 0.0 Prothrombin Time 14.9 # Prothrombin Time Ratio 1.2 INR International Normalized Ratio 1.16 Activated Partial Thromboplast Time 39.4 H Sodium Level 145 H Potassium Level 4.6 Chloride Level 111 H Carbon Dioxide Level 26 Anion Gap 8 Blood Urea Nitrogen 22 H Creatinine 0.61 Est Glomerular Filtrat Rate mL/min Glucose Level 119 Calcium Level 8.8 Phosphorus Level 3.3 Magnesium Level 2.2 Total Bilirubin 0.4 Direct Bilirubin 0.00 Indirect Bilirubin 0.4 Aspartate Amino Transf (AST/SGOT) 19 Alanine Aminotransferase (ALT/SGPT) 28 Alkaline Phosphatase 84 Total Protein 5.6 L Albumin 3.1 L Globulin 2.50 Albumin/Globulin Ratio 1.24 Exam/Review of Systems Exam Vitals Vital Signs Date Temp Pulse Resp B/P (MAP) Pulse Ox O2 O2 Flow FiO2 Time Delivery Rate 12/11/18 Simple 6.0 08:00 Mask 12/11/18 97.7 72 20 110/61 94 07:14 (77) Intake and Output 12/10/18 12/10/18 12/11/18 1515:00 23:00 07:00 IntakeIntake Total 100 ml 780 ml 50 ml BalanceBalance 100 ml 780 ml 50 ml Results Results 24hrs Laboratory Tests Test 12/11/18 05:12 White Blood Count 8.7 # Red Blood Count 3.51 L Hemoglobin 9.7 L Hematocrit 30.2 L Mean Corpuscular Volume 86.0 Mean Corpuscular Hemoglobin 27.6 L Mean Corpuscular Hemoglobin Concent 32.1 Red Cell Distribution Width 17.5 H Platelet Count 90 L Mean Platelet Volume 11.3 H Immature Granulocytes % 3.300 H Neutrophils % 76.0 Lymphocytes % 16.0 Monocytes % 3.7 Eosinophils % 0.8 Basophils % 0.2 Nucleated Red Blood Cells % 0.0 Immature Granulocytes # 0.290 H Neutrophils # 6.6 Lymphocytes # 1.4 Monocytes # 0.3 Eosinophils # 0.1 Basophils # 0.0 Nucleated Red Blood Cells # 0.0 Prothrombin Time 14.9 # Prothrombin Time Ratio 1.2 INR International Normalized Ratio 1.16 Activated Partial Thromboplast Time 39.4 H Sodium Level 145 H Potassium Level 4.6 Chloride Level 111 H Carbon Dioxide Level 26 Anion Gap 8 Blood Urea Nitrogen 22 H Creatinine 0.61 Est Glomerular Filtrat Rate mL/min Glucose Level 119 Calcium Level 8.8 Phosphorus Level 3.3 Magnesium Level 2.2 Total Bilirubin 0.4 Direct Bilirubin 0.00 Indirect Bilirubin 0.4 Aspartate Amino Transf (AST/SGOT) 19 Alanine Aminotransferase (ALT/SGPT) 28 Alkaline Phosphatase 84 Total Protein 5.6 L Albumin 3.1 L Globulin 2.50 Albumin/Globulin Ratio 1.24 Medications Medication Current Medications IV Flush (NS 3 ml) 3 ml PER PROTOCOL IV ; Start 12/10/18 at 03:30 Acetaminophen (Tylenol Tab) 650 mg Q6H PRN PO .PAIN 1-3 OR TEMP; Start 12/10/18 at 03:30 Docusate Sodium (Colace) 100 mg Q12H PRN PO .CONSTIPATION; Start 12/10/18 at 03:30 Bisacodyl (Dulcolax) 5 mg DAILY PRN PO .CONSTIPATION; Start 12/10/18 at 03:30 Vancomycin HCl (Vanco Iv Per Pharmacy) VANCOMYCIN PER PHARMACY PER PROTOCOL XX ; Start 12/10/18 at 03:30 Piperacillin Sod/ Tazobactam Sod 100 ml @ 200 mls/hr Q6 IVPB Last administered on 12/11/18at 06:49; Admin Dose 200 MLS/HR; Start 12/10/18 at 06:00 Vancomycin HCl 250 ml @ 125 mls/hr Q24H IVPB Last administered on 12/11/18at 04:26; Admin Dose 125 MLS/HR; Start 12/11/18 at 04:00 Miscellaneous Information (*Rx Drug Level Order Reminder*) VANCOMYCIN TROUGH LEVEL 0300 ONCE XX ; Start 12/13/18 at 03:00; Stop 12/13/18 at 03:01 Gabapentin (Neurontin) 600 mg TID PO Last administered on 12/11/18at 07:53; Admin Dose 600 MG; Start 12/10/18 at 09:00 Albuterol/ Ipratropium (Duoneb) 3 ml Q4H RESP THERAPY PRN HHN SHORTNESS OF BREATH; Start 12/10/18 at 05:00 Naproxen (Naprosyn) 500 mg BID PRN PO PAIN AND/OR INFLAMMATION; Start 12/10/18 at 05:00 Tramadol HCl (Ultram) 50 mg Q4H WHILE AWAKE PRN PO PAIN LEVEL 6-10; Start 12/10/18 at 05:00 Pantoprazole (Protonix Tab) 40 mg DAILY@06 PO Last administered on 12/11/18at 06:49; Admin Dose 40 MG; Start 12/10/18 at 06:00 Enoxaparin Sodium (Lovenox) 85 mg Q12 SC ; Start 12/11/18 at 09:00 IVET SHAH NP Dec 11, 2018 09:54
[2018-12-11] MEDS ORDERED: FUROSEMIDE 20 MG INJ IV ONE (10:00)
[2018-12-11] MEDS: ENOXAPARIN 100 MG/ML SYG SC SCH ×2 (12:21→20:42)
--- NOTE | 2018-12-11 17:00 | CONS ---
Assessment/Plan Assessment/Plan Assessment/Plan (Daily) IMP: 1. Hypoxemic Respiratory Insufficiency--2/2 right sided multifocal pneumonia. Consider HCAP vs. aspiration. No evidence of PE 2. LLE DVT 3. h/o ORIF s/p IVC filter insertion 4. Leukocytosis 5. Thrombocytopenia RECS: 1. Broad spectrum abx for HCAP coverage 2. De-escalate abx pending cultures 3. Aspiration precautions 4. ST eval 5. Initiate anticoagulation with lovenox 6. BD's as needed 7. Titrate FiO2 as tolerated Consultation Date/Type/Reason Admit Date/Time Dec 10, 2018 at 02:52 Date of Consultation: Dec 11, 2018 Type of Consult Pulm Date/Time of Note DATE: 12/11/18 TIME: 16:53 Hx of Present Illness Briefly, this is is a 78-year-old female with a history of HTN, DVT s/p IVC filter, s/p right hip ORIF, resident of a SNF, admitted with hypoxemic respiratory insufficiency 2/2 to right sided pneumonia. Constitutional: no complaints Eyes: no complaints ENT: no complaints Respiratory: shortness of breath Cardiovascular: no complaints, edema Gastrointestinal: no complaints Genitourinary: no complaints Musculoskeletal: back pain, bone/joint pain Skin: no complaints Neurologic: no complaints Endocrine: no complaints Lymphatic: no complaints Psychological: no complaints Immunologic: no complaints Past Medical History as per [facility] Home Meds Active Scripts Naproxen* (Naprosyn*) 500 Mg Tablet, 500 MG PO BID PRN for PAIN AND/OR INFLAMMATION, #30 TAB Prov:SHAE CAPELLAN MD 08/04/18 Reported Medications Hydrocodone/Acetaminophen (Hydrocodone-Acetamin 10-325 mg) 1 Each Tablet, 1 TAB PO DAILY PRN for PAIN LEVEL 6-10 for 20 Days 12/10/18 Hydrochlorothiazide* (Hydrochlorothiazide*) 25 Mg Tab, 25 MG PO DAILY for 60 Days, #60 take 1 tablet by mouth once daily 12/10/18 Benazepril Hcl* (Benazepril Hcl*) 20 Mg Tablet, 20 MG PO BID for 30 Days, #60 12/10/18 Ibuprofen* (Ibuprofen*) 800 Mg Tablet, 800 MG PO Q6H PRN for PAIN LEVEL 6-10 12/10/18 Furosemide* (Furosemide*) 20 Mg Tablet, 20 MG PO DAILY 12/10/18 Tramadol HCl (Tramadol HCl) 50 Mg Tablet, 50 MG PO Q4H WHILE AWAKE PRN for PAIN LEVEL 6-10, #120 TAB 08/04/18 Amlodipine Besylate* (Norvasc*) 10 Mg Tablet, 10 MG PO DAILY, TAB 08/04/18 Omeprazole* (Omeprazole*) 40 Mg Capsule.dr, 40 MG PO DAILY, #30 CAP 08/04/18 Gabapentin* (Gabapentin*) 600 Mg Tablet, 600 MG PO TID, #90 TAB 08/04/18 Medications Current Medications IV Flush (NS 3 ml) 3 ml PER PROTOCOL IV ; Start 12/10/18 at 03:30 Acetaminophen (Tylenol Tab) 650 mg Q6H PRN PO .PAIN 1-3 OR TEMP; Start 12/10/18 at 03:30 Docusate Sodium (Colace) 100 mg Q12H PRN PO .CONSTIPATION; Start 12/10/18 at 03:30 Bisacodyl (Dulcolax) 5 mg DAILY PRN PO .CONSTIPATION; Start 12/10/18 at 03:30 Vancomycin HCl (Vanco Iv Per Pharmacy) VANCOMYCIN PER PHARMACY PER PROTOCOL XX ; Start 12/10/18 at 03:30 Piperacillin Sod/ Tazobactam Sod 100 ml @ 200 mls/hr Q6 IVPB Last administered on 12/11/18at 12:12; Admin Dose 200 MLS/HR; Start 12/10/18 at 06:00 Vancomycin HCl 250 ml @ 125 mls/hr Q24H IVPB Last administered on 12/11/18at 04:26; Admin Dose 125 MLS/HR; Start 12/11/18 at 04:00 Miscellaneous Information (*Rx Drug Level Order Reminder*) VANCOMYCIN TROUGH LEVEL 0300 ONCE XX ; Start 12/13/18 at 03:00; Stop 12/13/18 at 03:01 Gabapentin (Neurontin) 600 mg TID PO Last administered on 12/11/18at 12:12; Admin Dose 600 MG; Start 12/10/18 at 09:00 Albuterol/ Ipratropium (Duoneb) 3 ml Q4H RESP THERAPY PRN HHN SHORTNESS OF BREATH; Start 12/10/18 at 05:00 Naproxen (Naprosyn) 500 mg BID PRN PO PAIN AND/OR INFLAMMATION; Start 12/10/18 at 05:00 Tramadol HCl (Ultram) 50 mg Q4H WHILE AWAKE PRN PO PAIN LEVEL 6-10; Start 12/10/18 at 05:00 Pantoprazole (Protonix Tab) 40 mg DAILY@06 PO Last administered on 12/11/18at 06:49; Admin Dose 40 MG; Start 12/10/18 at 06:00 Enoxaparin Sodium (Lovenox) 85 mg Q12 SC Last administered on 12/11/18at 12:21; Admin Dose 85 MG; Start 12/11/18 at 09:00 Allergies: Coded Allergies: No Known Drug Allergy (Unverified Allergy, Unknown, 12/10/18) Past Surgical History see HPI Family History Significant Family History: no pertinent family hx Social History Alcohol Use: none Smoking Status: Never smoker Drug Use: none Exam/Review of Systems Exam Vitals Vital Signs Date Temp Pulse Resp B/P (MAP) Pulse Ox O2 O2 Flow FiO2 Time Delivery Rate 12/11/18 5.0 15:37 12/11/18 98.4 81 20 107/67 97 Nasal 15:15 (80) Cannula Intake and Output 12/10/18 12/10/18 12/11/18 1515:00 23:00 07:00 IntakeIntake Total 100 ml 780 ml 50 ml BalanceBalance 100 ml 780 ml 50 ml Constitutional: alert, oriented, well developed Psych: no complaints, nl mood/affect Head: normocephalic, atraumatic Eyes: nl conjunctiva, EOMI, nl lids, nl sclera ENMT: nl external ears & nose, nl lips & teeth, nl nasal mucosa & septum, mucosa pink and moist Neck: supple, non-tender Respiratory: crackles/rales, diminished breath sounds Cardiovascular: regular rate and rhythm, edema Gastrointestinal: soft, nl liver, spleen, non-tender Extremities: edema Neurological: LEGAL FINANCIAL SPECIALIST II-XII intact Results Result Diagram: 12/11/1851112/11/18511 Results 24hrs Laboratory Tests Test 12/11/18 05:12 White Blood Count 8.7 # Red Blood Count 3.51 L Hemoglobin 9.7 L Hematocrit 30.2 L Mean Corpuscular Volume 86.0 Mean Corpuscular Hemoglobin 27.6 L Mean Corpuscular Hemoglobin Concent 32.1 Red Cell Distribution Width 17.5 H Platelet Count 90 L Mean Platelet Volume 11.3 H Immature Granulocytes % 3.300 H Neutrophils % 76.0 Lymphocytes % 16.0 Monocytes % 3.7 Eosinophils % 0.8 Basophils % 0.2 Nucleated Red Blood Cells % 0.0 Immature Granulocytes # 0.290 H Neutrophils # 6.6 Lymphocytes # 1.4 Monocytes # 0.3 Eosinophils # 0.1 Basophils # 0.0 Nucleated Red Blood Cells # 0.0 Prothrombin Time 14.9 # Prothrombin Time Ratio 1.2 INR International Normalized Ratio 1.16 Activated Partial Thromboplast Time 39.4 H Sodium Level 145 H Potassium Level 4.6 Chloride Level 111 H Carbon Dioxide Level 26 Anion Gap 8 Blood Urea Nitrogen 22 H Creatinine 0.61 Est Glomerular Filtrat Rate mL/min Glucose Level 119 Calcium Level 8.8 Phosphorus Level 3.3 Magnesium Level 2.2 Total Bilirubin 0.4 Direct Bilirubin 0.00 Indirect Bilirubin 0.4 Aspartate Amino Transf (AST/SGOT) 19 Alanine Aminotransferase (ALT/SGPT) 28 Alkaline Phosphatase 84 Total Protein 5.6 L Albumin 3.1 L Globulin 2.50 Albumin/Globulin Ratio 1.24 Medications Medication Current Medications IV Flush (NS 3 ml) 3 ml PER PROTOCOL IV ; Start 12/10/18 at 03:30 Acetaminophen (Tylenol Tab) 650 mg Q6H PRN PO .PAIN 1-3 OR TEMP; Start 12/10/18 at 03:30 Docusate Sodium (Colace) 100 mg Q12H PRN PO .CONSTIPATION; Start 12/10/18 at 03:30 Bisacodyl (Dulcolax) 5 mg DAILY PRN PO .CONSTIPATION; Start 12/10/18 at 03:30 Vancomycin HCl (Vanco Iv Per Pharmacy) VANCOMYCIN PER PHARMACY PER PROTOCOL XX ; Start 12/10/18 at 03:30 Piperacillin Sod/ Tazobactam Sod 100 ml @ 200 mls/hr Q6 IVPB Last administered on 12/11/18at 12:12; Admin Dose 200 MLS/HR; Start 12/10/18 at 06:00 Vancomycin HCl 250 ml @ 125 mls/hr Q24H IVPB Last administered on 12/11/18at 04:26; Admin Dose 125 MLS/HR; Start 12/11/18 at 04:00 Miscellaneous Information (*Rx Drug Level Order Reminder*) VANCOMYCIN TROUGH LEVEL 0300 ONCE XX ; Start 12/13/18 at 03:00; Stop 12/13/18 at 03:01 Gabapentin (Neurontin) 600 mg TID PO Last administered on 12/11/18at 12:12; Admin Dose 600 MG; Start 12/10/18 at 09:00 Albuterol/ Ipratropium (Duoneb) 3 ml Q4H RESP THERAPY PRN HHN SHORTNESS OF ZANDRA TH; Start 12/10/18 at 05:00 Naproxen (Naprosyn) 500 mg BID PRN PO PAIN AND/OR INFLAMMATION; Start 12/10/18 at 05:00 Tramadol HCl (Ultram) 50 mg Q4H WHILE AWAKE PRN PO PAIN LEVEL 6-10; Start 12/10/18 at 05:00 Pantoprazole (Protonix Tab) 40 mg DAILY@06 PO Last administered on 12/11/18at 06:49; Admin Dose 40 MG; Start 12/10/18 at 06:00 Enoxaparin Sodium (Lovenox) 85 mg Q12 SC Last administered on 12/11/18at 12:21; Admin Dose 85 MG; Start 12/11/18 at 09:00 RAFA BELLA MD Dec 11, 2018 17:00
[2018-12-12] MEDS: VANCOMYCIN 1 GM 250 ML IVPB SCH (03:54)
[2018-12-12 04:00] VITALS: BP 93/57; PULSE 73; RESP 20
[2018-12-12] MEDS: PIPER-TAZO 3.375 GM IV (PMX) 100 ML IVPB SCH ×3 (05:33→17:00)
[2018-12-12] MEDS: PANTOPRAZOLE (EC) 40 MG TAB PO SCH (05:33)
[2018-12-12 07:38] VITALS: BP 90/54; PULSE 75; RESP 20
[2018-12-12] MEDS: GABAPENTIN 300 MG CAP PO SCH ×3 (08:36→20:30)
[2018-12-12] MEDS: ENOXAPARIN 100 MG/ML SYG SC SCH (09:51)
[2018-12-12 11:27] VITALS: BP 97/59; PULSE 86; RESP 20
--- NOTE | 2018-12-12 12:15 | CONS ---
Consult Date/Type/Reason Admit Date/Time Dec 10, 2018 at 02:52 Initial Consult Date 12/11/18 Type of Consult Pulmonary Date/Time of Note DATE: 12/12/18 TIME: 12:13 Subjective Patient states she is improving today denies shortness of breath is on 2 L O2 requesting to go back to half-way facility. Objective Vital Signs Date Temp Pulse Resp B/P (MAP) Pulse Ox O2 O2 Flow FiO2 Time Delivery Rate 12/12/18 98.5 86 20 97/59 (72) 92 Nasal 11:27 Cannula 12/12/18 4.0 09:52 Intake and Output 12/11/18 12/11/18 12/12/18 1515:00 23:00 07:00 IntakeIntake Total 100 ml 1260 ml 50 ml BalanceBalance 100 ml 1260 ml 50 ml Exam GENERAL: Well-nourished well-developed lady comfortable at rest no acute distress VITAL SIGNS: per chart NECK: Supple. No JVD or lymphadenopathy. CARDIAC EXAM: S1, S2. No added sounds or murmurs. CHEST: Diminished air entry right base. ABDOMEN: Soft, nontender. No guarding or rebound. EXTREMITIES: No cyanosis, clubbing or edema. NEUROLOGIC: Generalized weakness. No focal deficits. Results/Medications Result Diagram: 12/12/18 0511 12/12/18 0511 Results 24 hrs Laboratory Tests Test 12/12/18 05:11 White Blood Count 5.9 # Red Blood Count 3.97 L Hemoglobin 10.8 L Hematocrit 33.8 L Mean Corpuscular Volume 85.1 Mean Corpuscular Hemoglobin 27.2 L Mean Corpuscular Hemoglobin Concent 32.0 Red Cell Distribution Width 17.6 H Platelet Count 103 L Mean Platelet Volume 11.6 H Immature Granulocytes % 6.300 H Neutrophils % Segmented Neutrophils % (Manual) 50 Band Neutrophils % (Manual) 6 H Lymphocytes % Lymphocytes % (Manual) 38 Monocytes % Monocytes % (Manual) 1 Eosinophils % Eosinophils % (Manual) 1 Basophils % Myelocytes % (Manual) 4 H Nucleated Red Blood Cells % 1 H Immature Granulocytes # 0.370 H Neutrophils # Neutrophils # (Manual) 3.0 Band Neutrophils # 0.3 Lymphocytes (Manual) 2.2 Lymphocytes # Monocytes # Monocytes # (Manual) 0.0 L Eosinophils # Basophils # Myelocytes # 0.2 H Nucleated Red Blood Cells # Platelet Estimate DECREASED Polychromasia 2+ Poikilocytosis 1+ Anisocytosis 1+ Microcytosis 1+ Ovalocytes 1+ Sodium Level 141 Potassium Level 3.9 Chloride Level 107 Carbon Dioxide Level 27 Anion Gap 7 Blood Urea Nitrogen 23 H Creatinine 0.68 Est Glomerular Filtrat Rate mL/min Glucose Level 88 Calcium Level 8.7 Phosphorus Level 4.5 Magnesium Level 1.9 Total Bilirubin 0.8 Direct Bilirubin 0.00 Indirect Bilirubin 0.8 Aspartate Amino Transf (AST/SGOT) 17 Alanine Aminotransferase (ALT/SGPT) 32 Alkaline Phosphatase 68 Total Protein 6.0 L Albumin 3.2 L Globulin 2.80 Albumin/Globulin Ratio 1.14 Medications Current Medications IV Flush (NS 3 ml) 3 ml PER PROTOCOL IV ; Start 12/10/18 at 03:30 Acetaminophen (Tylenol Tab) 650 mg Q6H PRN PO .PAIN 1-3 OR TEMP; Start 12/10/18 at 03:30 Docusate Sodium (Colace) 100 mg Q12H PRN PO .CONSTIPATION; Start 12/10/18 at 03:30 Bisacodyl (Dulcolax) 5 mg DAILY PRN PO .CONSTIPATION; Start 12/10/18 at 03:30 Vancomycin HCl (Vanco Iv Per Pharmacy) VANCOMYCIN PER PHARMACY PER PROTOCOL XX ; Start 12/10/18 at 03:30 Piperacillin Sod/ Tazobactam Sod 100 ml @ 200 mls/hr Q6 IVPB Last administered on 12/12/18at 05:33; Admin Dose 200 MLS/HR; Start 12/10/18 at 06:00 Vancomycin HCl 250 ml @ 125 mls/hr Q24H IVPB Last administered on 12/12/18at 03:54; Admin Dose 125 MLS/HR; Start 12/11/18 at 04:00 Miscellaneous Information (*Rx Drug Level Order Reminder*) VANCOMYCIN TROUGH LEVEL 0300 ONCE XX ; Start 12/13/18 at 03:00; Stop 12/13/18 at 03:01 Gabapentin (Neurontin) 600 mg TID PO Last administered on 12/12/18at 08:36; Admin Dose 600 MG; Start 12/10/18 at 09:00 Albuterol/ Ipratropium (Duoneb) 3 ml Q4H RESP THERAPY PRN HHN SHORTNESS OF BREATH; Start 6/29/19 at 05:00 Naproxen (Naprosyn) 500 mg BID PRN PO PAIN AND/OR INFLAMMATION; Start 12/10/18 at 05:00 Tramadol HCl (Ultram) 50 mg Q4H WHILE AWAKE PRN PO PAIN LEVEL 6-10; Start 12/10/18 at 05:00 Pantoprazole (Protonix Tab) 40 mg DAILY@06 PO Last administered on 12/12/18at 05:33; Admin Dose 40 MG; Start 12/10/18 at 06:00 Enoxaparin Sodium (Lovenox) 85 mg Q12 SC Last administered on 12/12/18at 09:51; Admin Dose 85 MG; Start 12/11/18 at 09:00 Assessment/Plan Hospital Course (Demo Recall) IMP: 1. Hypoxemic Respiratory Insufficiency--2/2 right sided multifocal pneumonia. Consider HCAP vs. aspiration. No evidence of PE improving hypoxemia 2. LLE DVT 3. h/o ORIF s/p IVC filter insertion 4. Leukocytosis 5. Thrombocytopenia RECS: 1. Broad spectrum abx for HCAP coverage 2. De-escalate abx pending cultures 3. Aspiration precautions 4. Aspiration precautions 5. Initiate anticoagulation with lovenox transition to Eliquis 6. BD's as needed 7. Titrate FiO2 as tolerated DC planning okay from pulmonary standpoint Patient wishes to return to [facility] COREY LARSON MD, [facility] Dec 12, 2018 12:15
[2018-12-12 15:32] VITALS: BP 90/62; PULSE 78; RESP 20
--- NOTE | 2018-12-12 15:33 | PN ---
Date/Time of Note Date/Time of Note DATE: 12/12/18 TIME: 15:24 Assessment/Plan VTE Prophylaxis [place] [facility] [place] risk: 6 [place] [facility] [place] Yes Pharmacological prophylaxis: apixaban Lines/Catheters IV Catheter Type (from [facility]): Saline Lock Assessment/Plan Hospital Course 1. Severe sepsis with suspected H CAP. - Continue antibiotics. - ID consult following. - Continue with O2 as needed. 2. Acute respiratory failure. - Multifactorial with H CAP. - Patient improving at present. - Titrate down O2 as tolerated. - Breathing treatments as needed. 4. Acute partially occlusive thrombus of the right femoral vein. - Patient does have IVC filter placed. - Started on Eliquis. Monitor for 5. Bilateral extremity edema. - Echo with preserved EF. - Diuretics. 6. Hypertension - continue antihypertensives. - Will adjust as needed. 7. Obesity. -Weight reduction was advised. 8. Suspect history of diabetes. - Monitor glucose Disposition plan. Transition to Eliquis. Continue antibiotics. Physical therapy to follow. DC planning in progress. Discussed POC with Dr. Huerta Result Diagram: 12/12/18 0511 12/12/18 0511 Results 24hrs Laboratory Tests Test 12/12/18 05:11 White Blood Count 5.9 # Red Blood Count 3.97 L Hemoglobin 10.8 L Hematocrit 33.8 L Mean Corpuscular Volume 85.1 Mean Corpuscular Hemoglobin 27.2 L Mean Corpuscular Hemoglobin Concent 32.0 Red Cell Distribution Width 17.6 H Platelet Count 103 L Mean Platelet Volume 11.6 H Immature Granulocytes % 6.300 H Neutrophils % Segmented Neutrophils % (Manual) 50 Band Neutrophils % (Manual) 6 H Lymphocytes % Lymphocytes % (Manual) 38 Monocytes % Monocytes % (Manual) 1 Eosinophils % Eosinophils % (Manual) 1 Basophils % Myelocytes % (Manual) 4 H Nucleated Red Blood Cells % 1 H Immature Granulocytes # 0.370 H Neutrophils # Neutrophils # (Manual) 3.0 Band Neutrophils # 0.3 Lymphocytes (Manual) 2.2 Lymphocytes # Monocytes # Monocytes # (Manual) 0.0 L Eosinophils # Basophils # Myelocytes # 0.2 H Nucleated Red Blood Cells # Platelet Estimate DECREASED Polychromasia 2+ Poikilocytosis 1+ Anisocytosis 1+ Microcytosis 1+ Ovalocytes 1+ Sodium Level 141 Potassium Level 3.9 Chloride Level 107 Carbon Dioxide Level 27 Anion Gap 7 Blood Urea Nitrogen 23 H Creatinine 0.68 Est Glomerular Filtrat Rate mL/min Glucose Level 88 Calcium Level 8.7 Phosphorus Level 4.5 Magnesium Level 1.9 Total Bilirubin 0.8 Direct Bilirubin 0.00 Indirect Bilirubin 0.8 Aspartate Amino Transf (AST/SGOT) 17 Alanine Aminotransferase (ALT/SGPT) 32 Alkaline Phosphatase 68 Total Protein 6.0 L Albumin 3.2 L Globulin 2.80 Albumin/Globulin Ratio 1.14 Subjective 24 Hr Interval Summary Free Text/Dictation Reports regular breathing today. Reports some pain on left lower extremity. Exam/Review of Systems Exam Vitals Vital Signs Date Temp Pulse Resp B/P (MAP) Pulse Ox O2 O2 Flow FiO2 Time Delivery Rate 12/12/18 3.0 12:30 12/12/18 98.5 86 20 97/59 (72) 92 Nasal 11:27 Cannula Intake and Output 12/11/18 12/11/18 12/12/18 1515:00 23:00 07:00 IntakeIntake Total 100 ml 1260 ml 50 ml BalanceBalance 100 ml 1260 ml 50 ml Constitutional: obese Psych: nl mood/affect Eyes: nl conjunctiva Respiratory: congested cough Cardiovascular: other (regular rate ) Gastrointestinal: soft, non-tender Musculoskeletal: swelling (minimal lle ) Neurological: SECURITY NURSE II-XII intact, nl mental status, nl speech Results Results 24hrs Laboratory Tests Test 12/12/18 05:11 White Blood Count 5.9 # Red Blood Count 3.97 L Hemoglobin 10.8 L Hematocrit 33.8 L Mean Corpuscular Volume 85.1 Mean Corpuscular Hemoglobin 27.2 L Mean Corpuscular Hemoglobin Concent 32.0 Red Cell Distribution Width 17.6 H Platelet Count 103 L Mean Platelet Volume 11.6 H Immature Granulocytes % 6.300 H Neutrophils % Segmented Neutrophils % (Manual) 50 Band Neutrophils % (Manual) 6 H Lymphocytes % Lymphocytes % (Manual) 38 Monocytes % Monocytes % (Manual) 1 Eosinophils % Eosinophils % (Manual) 1 Basophils % Myelocytes % (Manual) 4 H Nucleated Red Blood Cells % 1 H Immature Granulocytes # 0.370 H Neutrophils # Neutrophils # (Manual) 3.0 Band Neutrophils # 0.3 Lymphocytes (Manual) 2.2 Lymphocytes # Monocytes # Monocytes # (Manual) 0.0 L Eosinophils # Basophils # Myelocytes # 0.2 H Nucleated Red Blood Cells # Platelet Estimate DECREASED Polychromasia 2+ Poikilocytosis 1+ Anisocytosis 1+ Microcytosis 1+ Ovalocytes 1+ Sodium Level 141 Potassium Level 3.9 Chloride Level 107 Carbon Dioxide Level 27 Anion Gap 7 Blood Urea Nitrogen 23 H Creatinine 0.68 Est Glomerular Filtrat Rate mL/min Glucose Level 88 Calcium Level 8.7 Phosphorus Level 4.5 Magnesium Level 1.9 Total Bilirubin 0.8 Direct Bilirubin 0.00 Indirect Bilirubin 0.8 Aspartate Amino Transf (AST/SGOT) 17 Alanine Aminotransferase (ALT/SGPT) 32 Alkaline Phosphatase 68 Total Protein 6.0 L Albumin 3.2 L Globulin 2.80 Albumin/Globulin Ratio 1.14 Medications Medication Current Medications IV Flush (NS 3 ml) 3 ml PER PROTOCOL IV ; Start 12/10/18 at 03:30 Acetaminophen (Tylenol Tab) 650 mg Q6H PRN PO .PAIN 1-3 OR TEMP; Start 12/10/18 at 03:30 Docusate Sodium (Colace) 100 mg Q12H PRN PO .CONSTIPATION; Start 12/10/18 at 03:30 Bisacodyl (Dulcolax) 5 mg DAILY PRN PO .CONSTIPATION; Start 12/10/18 at 03:30 Vancomycin HCl (Vanco Iv Per Pharmacy) VANCOMYCIN PER PHARMACY PER PROTOCOL XX ; Start 12/10/18 at 03:30 Piperacillin Sod/ Tazobactam Sod 100 ml @ 200 mls/hr Q6 IVPB Last administered on 12/12/18at 12:21; Admin Dose 200 MLS/HR; Start 12/10/18 at 06:00 Vancomycin HCl 250 ml @ 125 mls/hr Q24H IVPB Last administered on 12/12/18at 03:54; Admin Dose 125 MLS/HR; Start 12/11/18 at 04:00 Miscellaneous Information (*Rx Drug Level Order Reminder*) VANCOMYCIN TROUGH LEVEL 0300 ONCE XX ; Start 12/13/18 at 03:00; Stop 12/13/18 at 03:01 Gabapentin (Neurontin) 600 mg TID PO Last administered on 12/12/18at 12:23; Admin Dose 600 MG; Start 12/10/18 at 09:00 Albuterol/ Ipratropium (Duoneb) 3 ml Q4H RESP THERAPY PRN HHN SHORTNESS OF BREATH; Start 12/10/18 at 05:00 Naproxen (Naprosyn) 500 mg BID PRN PO PAIN AND/OR INFLAMMATION; Start 12/10/18 at 05:00 Tramadol HCl (Ultram) 50 mg Q4H WHILE AWAKE PRN PO PAIN LEVEL 6-10; Start 12/10/18 at 05:00 Pantoprazole (Protonix Tab) 40 mg DAILY@06 PO Last administered on 12/12/18at 05:33; Admin Dose 40 MG; Start 12/10/18 at 06:00 Enoxaparin Sodium (Lovenox) 85 mg Q12 SC Last administered on 12/12/18at 09:51; Admin Dose 85 MG; Start 12/11/18 at 09:00 ANUP AMOS NP Dec 12, 2018 15:33
[2018-12-12 20:00] VITALS: BP 98/57; PULSE 85; RESP 20
[2018-12-12] MEDS: APIXABAN 5 MG TABLET PO SCH (20:31)
[2018-12-12] MEDS: traMADol 50 MG TAB PO PRN (22:07)
[2018-12-12 23:56] VITALS: BP 101/59; PULSE 72; RESP 20
[2018-12-13] MEDS: PIPER-TAZO 3.375 GM IV (PMX) 100 ML IVPB SCH ×3 (00:48→11:56)
[2018-12-13 04:00] VITALS: BP 100/58; PULSE 64; RESP 20
[2018-12-13] MEDS: VANCOMYCIN 1 GM 250 ML IVPB SCH (04:28)
[2018-12-13] MEDS: PANTOPRAZOLE (EC) 40 MG TAB PO SCH (05:34)
[2018-12-13 07:18] VITALS: BP 100/58; PULSE 66; RESP 20
[2018-12-13] MEDS: traMADol 50 MG TAB PO PRN (08:58)
[2018-12-13] MEDS: GABAPENTIN 300 MG CAP PO SCH ×2 (08:58→12:00)
[2018-12-13] MEDS: APIXABAN 5 MG TABLET PO SCH (08:58)
[2018-12-13] MEDS ORDERED: APIX5TAB PO (11:13)
[2018-12-13] MEDS ORDERED: LEVO500T48 PO (11:13)
--- NOTE | 2018-12-13 11:14 | PDOCDIS ---
Discharge Instructions DIAGNOSIS Discharge Diagnosis 1. Severe sepsis with suspected H CAP. 2. Acute respiratory failure. 4. Acute partially occlusive thrombus of the right femoral vein. 5. Bilateral extremity edema. 6. Hypertension 7. Obesity. 8. Suspect history of diabetes. CONDITION [id number] Patient Condition: [id number] Stable FOLLOW UP/APPOINTMENTS Follow-up Plan 1. Further management and care per half-way facility ANUP AMOS NP Dec 13, 2018 11:14
[2018-12-13 11:31] VITALS: BP 141/61; PULSE 67; RESP 20
--- NOTE | 2018-12-13 12:11 | CONS ---
Consult Date/Type/Reason Admit Date/Time Dec 10, 2018 at 02:52 Initial Consult Date 12/11/18 Type of Consult Pulmonary Date/Time of Note DATE: 12/13/18 TIME: 12:11 Subjective Patient stable this morning. No new events. Requesting to go home. Objective Vital Signs Date Temp Pulse Resp B/P (MAP) Pulse Ox O2 O2 Flow FiO2 Time Delivery Rate 12/13/18 97.7 67 20 141/61 92 Nasal 11:31 (87) Cannula 12/13/18 2.0 08:07 Intake and Output 12/12/18 12/12/18 12/13/18 1414:59 22:59 06:59 IntakeIntake Total 440 ml 120 ml 470 ml BalanceBalance 440 ml 120 ml 470 ml Exam GENERAL: Well-nourished well-developed lady comfortable at rest no acute distress VITAL SIGNS: per chart NECK: Supple. No JVD or lymphadenopathy. CARDIAC EXAM: S1, S2. No added sounds or murmurs. CHEST: Diminished air entry right base. ABDOMEN: Soft, nontender. No guarding or rebound. EXTREMITIES: No cyanosis, clubbing or edema. NEUROLOGIC: Generalized weakness. No focal deficits. Results/Medications Result Diagram: 12/13/18 0309 12/13/18 0309 Results 24 hrs Laboratory Tests Test 12/13/18 03:09 White Blood Count 4.8 Red Blood Count 3.82 L Hemoglobin 10.6 L Hematocrit 32.7 L Mean Corpuscular Volume 85.6 Mean Corpuscular Hemoglobin 27.7 L Mean Corpuscular Hemoglobin Concent 32.4 Red Cell Distribution Width 17.0 H Platelet Count 103 L Mean Platelet Volume 10.3 Immature Granulocytes % 8.600 H Neutrophils % Segmented Neutrophils % (Manual) 38 L Band Neutrophils % (Manual) 4 Lymphocytes % Lymphocytes % (Manual) 48 Reactive Lymphocytes % (Manual) 3 H Monocytes % Monocytes % (Manual) 4 Eosinophils % Eosinophils % (Manual) 1 Basophils % Myelocytes % (Manual) 2 H Nucleated Red Blood Cells % 0.0 Immature Granulocytes # 0.410 H Neutrophils # Neutrophils # (Manual) 1.8 Band Neutrophils # 0.1 Lymphocytes (Manual) 2.3 Lymphocytes # Reactive Lymphocytes # 0.1 H Monocytes # Monocytes # (Manual) 0.1 L Eosinophils # Basophils # Myelocytes # 0.0 Nucleated Red Blood Cells # Platelet Estimate DECREASED Polychromasia 1+ Anisocytosis 1+ Microcytosis 1+ Sodium Level 144 Potassium Level 3.5 Chloride Level 112 H Carbon Dioxide Level 26 Anion Gap 6 Blood Urea Nitrogen 24 H Creatinine 0.72 Est Glomerular Filtrat Rate mL/min Glucose Level 97 Calcium Level 8.4 Phosphorus Level 3.8 Magnesium Level 2.1 Total Bilirubin 0.5 Direct Bilirubin 0.00 Indirect Bilirubin 0.5 Aspartate Amino Transf (AST/SGOT) 14 L Alanine Aminotransferase (ALT/SGPT) 25 Alkaline Phosphatase 62 Total Protein 5.8 L Albumin 3.1 L Globulin 2.70 Albumin/Globulin Ratio 1.14 Procalcitonin 0.86 H Vancomycin Level Trough 7.7 L Medications Current Medications IV Flush (NS 3 ml) 3 ml PER PROTOCOL IV ; Start 12/10/18 at 03:30 Acetaminophen (Tylenol Tab) 650 mg Q6H PRN PO .PAIN 1-3 OR TEMP; Start 12/10/18 at 03:30 Docusate Sodium (Colace) 100 mg Q12H PRN PO .CONSTIPATION; Start 12/10/18 at 03:30 Bisacodyl (Dulcolax) 5 mg DAILY PRN PO .CONSTIPATION; Start 12/10/18 at 03:30 Vancomycin HCl (Vanco Iv Per Pharmacy) VANCOMYCIN PER PHARMACY PER PROTOCOL XX ; Start 12/10/18 at 03:30 Piperacillin Sod/ Tazobactam Sod 100 ml @ 200 mls/hr Q6 IVPB Last administered on 12/13/18at 11:56; Admin Dose 200 MLS/HR; Start 12/10/18 at 06:00 Gabapentin (Neurontin) 600 mg TID PO Last administered on 12/13/18at 12:00; Admin Dose 600 MG; Start 12/10/18 at 09:00 Albuterol/ Ipratropium (Duoneb) 3 ml Q4H RESP THERAPY PRN HHN SHORTNESS OF BREATH; Start 12/10/18 at 05:00 Naproxen (Naprosyn) 500 mg BID PRN PO PAIN AND/OR INFLAMMATION Last administered on 12/12/18at 18:45; Admin Dose 500 MG; Start 12/10/18 at 05:00 Tramadol HCl (Ultram) 50 mg Q4H WHILE AWAKE PRN PO PAIN LEVEL 6-10 Last administered on 12/13/18at 08:58; Admin Dose 50 MG; Start 12/10/18 at 05:00 Pantoprazole (Protonix Tab) 40 mg DAILY@06 PO Last administered on 12/13/18at 05:34; Admin Dose 40 MG; Start 12/10/18 at 06:00 Apixaban (Eliquis) 10 mg BID PO Last administered on 12/13/18at 08:58; Admin Dose 10 MG; Start 12/12/18 at 21:00; Stop 12/19/18 at 09:01 Apixaban (Eliquis) 5 mg BID PO ; Start 12/19/18 at 21:00 Vancomycin HCl 1.25 gm/Sodium Chloride 250 ml @ 83.333 mls/ hr Q18H IVPB ; Start 12/13/18 at 22:00 Assessment/Plan Hospital Course (Demo Recall) IMP: 1. Hypoxemic Respiratory Insufficiency--2/2 right sided multifocal pneumonia. Consider HCAP vs. aspiration. No evidence of PE improving hypoxemia 2. LLE DVT 3. h/o ORIF s/p IVC filter insertion 4. Leukocytosis 5. Thrombocytopenia RECS: 1. Broad spectrum abx for HCAP coverage 2. De-escalate abx pending cultures 3. Aspiration precautions 4. Aspiration precautions 5. Initiate anticoagulation with lovenox transition to Eliquis 6. BD's as needed 7. Titrate FiO2 as tolerated DC planning okay from pulmonary standpoint Patient wishes to return to [facility] CORE[facility] LARSON MD, [facility] Dec 13, 2018 12:11
--- NOTE | 2018-12-13 14:05 | DS ---
Date/Time of Note Date/Time of Note DATE: 12/13/18 TIME: 14:02 Discharge Summary Admission/Discharge Info Admit Date/Time Dec 10, 2018 at 02:52 Discharge Date/Time Discharge Diagnosis 1. Severe sepsis with suspected H CAP. 2. Acute respiratory failure. 4. Acute partially occlusive thrombus of the right femoral vein. 5. Bilateral extremity edema. 6. Hypertension 7. Obesity. 8. Suspect history of diabetes. Patient Condition: Stable Hospital Course This is a 78-year-old female with past medical history of hypertension, suspect neuropathy, coagulopathy with IVC filter, osteoporosis, who was brought to the hospital due to reports of increased shortness of breath. Patient does reside at [facility] and was reportedly more dyspneic with low O2 saturation prior to admission. She had a CTA of the chest performed in the emergency room that was negative for PE. She did have imaging consistent with bilateral pneumonia. Patient was seen by door glass installer and placed on appropriate antibiotics. She did have good response. She was also provided with breathing treatments. Further evaluation due to the patient have acute partially occlusive thrombus in the right femoral vein for which she was placed on Eliquis. During her course of stay she did improve. She was otherwise optimized medically with antihypertensives for high blood pressure she was advised for weight reduction for her obesity. The plan of care was discussed with the patient and patient verbalized understanding. On the day of discharge patient was in stable condition Discussed POC with Dr. Huerta [facility] Active Scripts Levofloxacin* (Levaquin*) 500 Mg Tablet, 500 MG PO DAILY, #10 TAB Prov:ANUP AMOS NP 12/13/18 Apixaban* (Eliquis*) 5 Mg Tablet, 5 MG PO BID, #60 TAB Prov:ANUP AMOS NP 12/13/18 Apixaban* (Eliquis*) 5 Mg Tablet, 10 MG PO BID, #12 TAB Prov:ANUP AMOS NP 12/13/18 Naproxen* (Naprosyn*) 500 Mg Tablet, 500 MG PO BID PRN for PAIN AND/OR INFLAMMATION, #30 TAB Prov:SHAE CAPELLAN MD 08/04/18 Reported Medications Benazepril Hcl* (Benazepril Hcl*) 20 Mg Tablet, 20 MG PO BID for 30 Days, #60 12/10/18 Ibuprofen* (Ibuprofen*) 800 Mg Tablet, 800 MG PO Q6H PRN for PAIN LEVEL 6-10 12/10/18 Furosemide* (Furosemide*) 20 Mg Tablet, 20 MG PO DAILY 12/10/18 Tramadol HCl (Tramadol HCl) 50 Mg Tablet, 50 MG PO Q4H WHILE AWAKE PRN for PAIN LEVEL 6-10, #120 TAB 08/04/18 Omeprazole* (Omeprazole*) 40 Mg Capsule.dr, 40 MG PO DAILY, #30 CAP 08/04/18 Gabapentin* (Gabapentin*) 600 Mg Tablet, 600 MG PO TID, #90 TAB 08/04/18 Discontinued Reported Medications Hydrocodone/Acetaminophen (Hydrocodone-Acetamin 10-325 mg) 1 Each Tablet, 1 TAB PO DAILY PRN for PAIN LEVEL 6-10 for 20 Days 12/10/18 Hydrochlorothiazide* (Hydrochlorothiazide*) 25 Mg Tab, 25 MG PO DAILY for 60 Days, #60 take 1 tablet by mouth once daily 12/10/18 Amlodipine Besylate* (Norvasc*) 10 Mg Tablet, 10 MG PO DAILY, TAB 08/04/18 Follow-up Plan 1. Further management and care per correction facility Primary Care Provider Not On Staff Doctor Time spent on discharge: > 30 minutes Pending Labs Laboratory Tests Test 12/13/18 03:09 White Blood Count 4.8 10^3/ul (4.8-10.8) Red Blood Count 3.82 10^6/ul (4.20-5.40) Hemoglobin 10.6 g/dl (12.0-16.0) Hematocrit 32.7 % (37.0-47.0) Mean Corpuscular Volume 85.6 fl (82.0-101.0) Mean Corpuscular Hemoglobin 27.7 pg (29.0-33.0) Mean Corpuscular Hemoglobin Concent 32.4 g/dl (32.0-37.0) Red Cell Distribution Width 17.0 % (11.5-14.5) Platelet Count 103 10^3/UL (140-415) Mean Platelet Volume 10.3 fl (7.4-10.4) Immature Granulocytes % 8.600 % (0.001-0.429) Neutrophils % % (39.0-77.0) Segmented Neutrophils % (Manual) 38 % (39-77) Band Neutrophils % (Manual) 4 % (0-4) Lymphocytes % % (15.0-51.0) Lymphocytes % (Manual) 48 % (15-51) Reactive Lymphocytes % (Manual) 3 % (0-0) Monocytes % % (0.0-11.0) Monocytes % (Manual) 4 % (0-11) Eosinophils % % (0.0-7.0) Eosinophils % (Manual) 1 % (0-7) Basophils % % (0.0-2.0) Myelocytes % (Manual) 2 % (0-0) Nucleated Red Blood Cells % 0.0 /100WBC (0.0-0.0) Immature Granulocytes # 0.410 10^3/ul (0.0-0.031) Neutrophils # 10^3/ul (1.6-7.5) Neutrophils # (Manual) 1.8 10^3/ul (1.6-7.5) Band Neutrophils # 0.1 10^3/ul (0.0-0.6) Lymphocytes (Manual) 2.3 10^3/ul (0.8-2.9) Lymphocytes # 10^3/ul (0.8-2.9) Reactive Lymphocytes # 0.1 10^3/ul (0.0-0.0) Monocytes # 10^3/ul (0.3-0.9) Monocytes # (Manual) 0.1 10^3/ul (0.3-0.9) Eosinophils # 10^3/ul (0.0-0.5) Basophils # 10^3/ul (0.0-0.1) Myelocytes # 0.0 10^3/ul (0.0-0.0) Nucleated Red Blood Cells # 10^3/ul (0.0-0.0) Platelet Estimate DECREASED Polychromasia 1+ (0-0) Anisocytosis 1+ (0-0) Microcytosis 1+ (0-0) Sodium Level 144 mmol/L (135-144) Potassium Level 3.5 mmol/L (3.5-5.1) Chloride Level 112 mmol/L (97-110) Carbon Dioxide Level 26 mmol/L (21-31) Anion Gap 6 (5-13) Blood Urea Nitrogen 24 mg/dl (7-20) Creatinine 0.72 mg/dl (0.44-1.00) Est Glomerular Filtrat Rate mL/min mL/min (>60) Glucose Level 97 mg/dl (70-220) Calcium Level 8.4 mg/dl (8.4-10.2) Phosphorus Level 3.8 mg/dl (2.5-4.9) Magnesium Level 2.1 mg/dl (1.7-2.5) Total Bilirubin 0.5 mg/dl (0.2-1.3) Direct Bilirubin 0.00 mg/dl (0.00-0.20) Indirect Bilirubin 0.5 mg/dl (0-1.1) Aspartate Amino Transf (AST/SGOT) 14 IU/L (15-46) Alanine Aminotransferase (ALT/SGPT) 25 IU/L (13-69) Alkaline Phosphatase 62 IU/L (42-121) Total Protein 5.8 g/dl (6.1-8.1) Albumin 3.1 g/dl (3.3-4.9) Globulin 2.70 g/dl (1.3-3.2) Albumin/Globulin Ratio 1.14 Procalcitonin 0.86 ng/mL (0.00-0.10) Vancomycin Level Trough 7.7 ug/ml (10.0-20.0) ANUP AMOS NP Dec 13, 2018 14:05
[2018-12-13 15:24] VITALS: BP 98/56; PULSE 64; RESP 20
[2018-12-13] MEDS ORDERED: VANCOMYCIN HCL 1.25 GM in SOD CHLORIDE 0.9% 250 ML IVPB SCH (22:00)
[2018-12-19] MEDS ORDERED: APIXABAN 5 MG TABLET PO SCH (21:00)
== END 2018-12-13 16:32 | DRG 871 ==
LOC: E/R 00:58 → 6WM 02:52
PROVIDERS: ADMIT Family Medicine; ATTEND Family Medicine
DX: A41.9 Sepsis, unspecified organism (principal); J18.9 Pneumonia, unspecified organism; J96.01 Acute respiratory failure with hypoxia; D68.9 Coagulation defect, unspecified; I82.411 Acute embolism and thrombosis of right femoral vein; D69.6 Thrombocytopenia, unspecified; M81.0 Age-related osteoporosis without current pathological fracture; E78.5 Hyperlipidemia, unspecified; I10 Essential (primary) hypertension; E66.9 Obesity, unspecified; Z68.34 Body mass index [BMI] 34.0-34.9, adult
CPT/HCPCS: 36415; 71045; 71275; 74018; 76705; 80053; 80061; 80202; 82306; 82803; 83036; 83605; 83735; 83880; 84100; 84145; 84443; 84484; 85025; 85610; 85730; 87081; 92526; 92610; 93005; 93306; 93970; 96374; 96375; 97162; J0456; J0696; J1644; J1650; J1940; J2543; J3370; J7050; P9047; Q9967